=== PATIENT | female | born 1965 | race Caucasian/White ===

== ENCOUNTER 2021-10-18 16:52 | Outpatient (CLI) | payer BC, SELFPAY ==
--- NOTE | ~2021-10-18 | XR_ITS ---
EXAMINATION: XR knee RT 3V DATE: 10/18/2021 17:17 INDICATION: Right knee pain. TECHNIQUE: 3 views of right knee were obtained. COMPARISON: Right knee radiographs 10/24/2016 FINDINGS: Bone alignment is normal. No fracture. There is mild tricompartmental osteoarthritis charac terized by tiny osteophytes. No joint space narrowing. No knee joint effusion. IMPRESSION: 1. Mild right knee osteoarthritis. Reviewed, dictated and finalized at location A.
== END 2021-10-18 16:53 | disposition home or self-care (01) ==
LOC: ANHIMG 17:00
PROVIDERS: PCP Family Medicine
DX: M17.11 Unilateral primary osteoarthritis, right knee (principal)
CPT/HCPCS: 73562

== ENCOUNTER 2022-08-30 16:41 | Outpatient (CLI) | payer BC, SELFPAY ==
--- NOTE | ~2022-08-30 | XR_ITS ---
XR cervical spine 4-5V 08/30/2022 17:09 Indication: Connective tissue disorder Procedure: 4 views cervical spine Comparison: No prior studies for comparison. Findings: Vertebral body heights are maintained. There is disc narrowing at C3-4 through C7-T1. No pr evertebral soft tissue abnormality. No acute fracture or traumatic malalignment. There is mild multil evel uncinate hypertrophy. Lung apices are unremarkable. Impression: 1: Mild cervical spondylosis. Reviewed, dictated and finalized at location A. Impression: 1: Mild cervical spondylosis.
--- NOTE | ~2022-08-30 | XR_ITS ---
XR lumbar spine 2-3V 08/30/2022 17:09 Indication: Low back pain Procedure: 3 views lumbar spine Comparison: No prior studies for comparison. Findings: Vertebral body heights are maintained. Normal lumbar lordosis. There is mild disc narrowing at L4-5 and L5-S1. There is facet hypertrophy at these levels. No evidence for acute fracture or spo ndylolisthesis. Mild dextrocurvature of the lumbar spine. Pedicles intact. Sacral foramen are symmetr ic. There are cholecystectomy clips. Impression: 1: Mild lumbar spondylosis. Reviewed, dictated and finalized at location A. Impression: 1: Mild lumbar spondylosis.
== END 2022-08-30 16:42 | disposition home or self-care (01) ==
LOC: ANHIMG 16:49
PROVIDERS: PCP Family Medicine
DX: M15.0 Primary generalized (osteo)arthritis (principal); M35.9 Systemic involvement of connective tissue, unspecified; M47.896 Other spondylosis, lumbar region; M47.892 Other spondylosis, cervical region
CPT/HCPCS: 72050; 72100

== ENCOUNTER 2022-10-22 09:08 | Outpatient (CLI) | payer BC, SELFPAY ==
--- NOTE | 2022-10-22 11:00 | NEURO_ITS ---
Impression: Patient reports a history of lower extremity numbness. # Reduce CMAP amplitudes noted in all three points of stimulation in right peroneal motor nerve. # Chronic neurogenic changes noted in right extensor digitorum brevis. # These findings could be seen in the setting of axonal neuropathy involving the right peroneal nerve. # Clinical correlation recommended. Nerve Conduction Studies Anti Sensory Summary Table Stim Site NR Peak (ms) P-T Amp (?V) Site1 Site2 Delta-P (ms) Dist (cm) Nilo (m/s) Left Sup Fibular Anti Sensory (Ant Lat Mall) 14 cm 3.5 8.6 14 cm Ant Lat Mall 3.5 16.0 46 Right Sup Fibular Anti Sensory (Ant Lat Mall) 14 cm 3.3 4.9 14 cm Ant Lat Mall 3.3 16.0 48 Left Sural Anti Sensory (Lat Mall) Calf 3.4 12.9 Calf Lat Mall 3.4 16.0 47 Right Sural Anti Sensory (Lat Mall) Calf 3.3 12.8 Calf Lat Mall 3.3 16.0 48 Motor Summary Table Stim Site NR Onset (ms) O-P Amp (mV) Site1 Site2 Delta-0 (ms) Dist (cm) Nilo (m/s) Left Peroneal Motor (Vastus Med) Ankle 4.7 2.6 Popit Ankle 10.1 44.0 44 Popit 14.8 1.9 B Fib Ankle 8.0 34.0 43 B Fib 12.7 2.0 Right Peroneal Motor (Vastus Med) Ankle 5.0 0.7 Popit Ankle 9.2 44.0 48 Popit 14.2 0.9 B Fib Ankle 8.1 34.0 42 B Fib 13.1 0.4 Left Tibial Motor (Abd Farrell Brev) Ankle 4.6 5.4 Knee Ankle 9.9 43.0 43 Knee 14.5 4.1 Right Tibial Motor (Abd Farrell Brev) Ankle 4.7 6.2 Knee Ankle 9.5 42.0 44 Knee 14.2 5.1 F Wave Studies NR F-Lat (ms) L-R F-Lat (ms) Left Peroneal (Mrkrs) (EDB) 56.60 0.83 Right Peroneal (Mrkrs) (EDB) 57.43 0.83 Left Tibial (Mrkrs) (Abd Hallucis) 57.17 0.21 Right Tibial (Mrkrs) (Abd Hallucis) 56.96 0.21 EMG Side Muscle Nerve Root Ins Act Fibs Amp Dur Recrt Comment Right AntTibialis Dp Br Fibular L4-5 Nml Nml Nml Nml Nml Right Gastroc Tibial S1-2 Nml Nml Nml Nml Nml Right Fibularis Long Sup Br Fibular L5-S1 Nml Nml Nml Nml Nml Right Flex Dig Long Tibial L5-S2 Nml Nml Nml Nml Nml Right Ext Dig Brev Dp Br Fibular L5, S1 Nml Nml Incr Nml Reduced Left AntTibialis Dp Br Fibular L4-5 Nml Nml Nml Nml Nml Left Gastroc Tibial S1-2 Nml Nml Nml Nml Nml Left Fibularis Long Sup Br Fibular L5-S1 Nml Nml Nml Nml Nml Left Flex Dig Long Tibial L5-S2 Nml Nml Nml Nml Nml Left Ext Dig Brev Dp Br Fibular L5, S1 Nml Nml Nml Nml Nml MTDD
== END 2022-10-22 09:09 | disposition home or self-care (01) ==
PROVIDERS: PCP Family Medicine; Visit Provider Physician Assistant
DX: R20.0 Anesthesia of skin (principal); R94.131 Abnormal electromyogram [EMG]
CPT/HCPCS: 95886; 95910

== ENCOUNTER 2023-01-17 07:55 | Outpatient (CLI) | payer BC, SELFPAY ==
--- NOTE | ~2023-01-17 | US_ITS ---
Limited Abdominal Sonogram: Real-time sonographic imaging of the right upper quadrant was performed. Clinical History: Connective tissue disorder Findings: The liver appears mildly echogenic/heterogeneous, with no evidence of bile duct dilatation . Questionable 1.6 cm hypoechoic area in the left hepatic lobe. Main portal vein demonstrates normal direction of flow. The gallbladder is well absent, compatible prior cholecystectomy. The common bile duct measures 2 mm. The visualized pancreas, aorta, and IVC are unremarkable. Impression: Suspected fatty infiltration of the liver other chronic liver disease. Questionable 1.6 cm hypoechoic area in the left hepatic lobe. This could reflect area of relative fatty sparing versus potentially a small mass. Consider follow-up hepatic MR as indicated to further evaluate. Reviewed, dictated and finalized at location M. Impression: Suspected fatty infiltration of the liver other chronic liver disease. Question able 1.6 cm hypoechoic area in the left hepatic lobe. This could reflect area o f relative fatty sparing versus potentially a small mass. Consider follow-up he patic MR as indicated to further evaluate.
== END 2023-01-17 07:56 | disposition home or self-care (01) ==
LOC: ANHIMG 07:58
PROVIDERS: PCP Family Medicine; Visit Provider Internal Medicine
DX: M35.9 Systemic involvement of connective tissue, unspecified (principal); R79.89 Other specified abnormal findings of blood chemistry; K76.9 Liver disease, unspecified
CPT/HCPCS: 76705

== ENCOUNTER 2023-02-01 07:12 | Outpatient (CLI) | payer BC, SELFPAY ==
--- NOTE | ~2023-02-01 | MR_ITS ---
EXAMINATION: MR abdomen wo/w con INDICATION: Hepatomegaly not elsewhere classified, liver mass on ultrasound TECHNIQUE: Coronal SSFSE ARC, WATER:coronal LAVA-FLEX, Coronal 2D FIESTA FatSat, Axial SSFSE BH ARC, Axial 3D DualEcho BH, Axial SSFSE-IR, Axial DWI b=500, Axial 2D FIESTA FatSat, pre and dynamic postco ntrast Axial LAVA ARC, postcontrast Coronal In and Opposed phase LAVA FLEX COMPARISON: Ultrasound, 01/17/2023 CONTRAST: Multihance, 15 cc FINDINGS: The liver is unremarkable. No suspicious liver mass is identified. There is no MR evidence of hepatic steatosis. The spleen, pancreas, and adrenal glands are normal. The gallbladder is surgica lly absent. The right kidney is unremarkable. There is an 8 mm cyst of the left kidney. There are no pathologically enlarged abdominal lymph nodes. No dilated loops of bowel are evident. IMPRESSION: 1. No suspicious liver mass identified. Reviewed, dictated and finalized at location F.
== END 2023-02-01 07:13 | disposition home or self-care (01) ==
PROVIDERS: PCP Family Medicine; Visit Provider Physician Assistant
DX: R16.0 Hepatomegaly, not elsewhere classified (principal)
CPT/HCPCS: 74183; A9577

== ENCOUNTER 2023-11-14 16:53 | Outpatient (CLI) | payer BC, SELFPAY ==
--- NOTE | ~2023-11-14 | XR_ITS ---
EXAM: XR hand LT min 3V, XR hand RT min 3V DATE: 11/14/2023 17:22 HISTORY: Connective tissue disorder. COMPARISON: 10/24/2016. FINDINGS: Soft tissue anchor in the distal right ulna Normal mineralization. No fracture or dislocati on. No lytic or blastic lesion. Very mild degenerative change noted in the DIP joints and PIP joints of the bilateral fingers, the bilateral first MCP joints, and the left first CMC joint. No erosion or periosteal change. Soft tissues within normal limits. IMPRESSION: Mild particular osteoarthritis of the hands. Reviewed, dictated and finalized at location K. IMPRESSION: Mild particular osteoarthritis of the hands.
--- NOTE | ~2023-11-14 | XR_ITS ---
EXAM: XR_KNEE1-2VRT_CR, XR_KNEE1-2VLT_CR DATE: 11/14/2023 17:22 HISTORY: CONNECTIVE TISSUE . COMPARISON: Right knee 10/18/2021; left knee 10/24/2016. FINDINGS: Normal mineralization. Mild bilateral medial joint space narrowing. Mild bilateral tricomp artmental osteophytosis. No fracture or dislocation. No lytic or blastic lesions. No erosion or perio steal change. Bilateral leg varicosities. IMPRESSION: Mild bilateral tricompartmental knee osteoarthritis. Reviewed, dictated and finalized at location K. IMPRESSION: Mild bilateral tricompartmental knee osteoarthritis.
== END 2023-11-14 16:54 | disposition home or self-care (01) ==
LOC: ANHIMG 16:53
PROVIDERS: PCP Family Medicine; Visit Provider Internal Medicine
DX: M19.042 Primary osteoarthritis, left hand (principal); M19.041 Primary osteoarthritis, right hand; M17.0 Bilateral primary osteoarthritis of knee
CPT/HCPCS: 73130; 73560

== ENCOUNTER 2023-12-24 17:44 | Emergency (ER) | payer BC, SELFPAY ==
[2023-12-24 17:53] VITALS: BP 115/72; PULSE 78; RESP 16; TEMP 37.6; O2SAT 97
--- NOTE | 2023-12-24 18:11 | ED.SKABFB ---
HPI - Skin/Abscess/Foreign Bdy General Chief complaint: Skin/Abscess/Foreign Body Stated complaint: rash Time Seen by Provider: 12/24/23 18:05 Source: patient and RN notes reviewed Mode of arrival: ambulatory Limitations: no limitations History of Present Illness HPI narrative: Patient presents today complaining of a 3 day history of a small area of rash to the left lateral flank with itching and burning. She has been using Benadryl and cortisone with little relief. Believe she may have shingles. She did have the updated shingles vaccine in May and July. History of lupus and takes Plaquenil. Related Data Home Medications Medication Instructions Recorded Confirmed multivitamin 1 tablet PO DAILY 06/07/19 12/24/23 nabumetone 750 mg tablet 750 mg PO BID 06/07/19 12/24/23 turmeric root extract 500 mg 500 mg PO DAILY 06/07/19 12/24/23 capsule hydroxychloroquine 200 mg tablet 300 mg PO DAILY 01/11/22 12/24/23 pregabalin 100 mg capsule (Lyrica) 100 mg PO TID 04/29/23 12/24/23 Allergies Allergy/AdvReac Type Severity Reaction Status Date / Time No Known Allergies Allergy Verified 12/24/23 17:57 Review of Systems Review of Systems: CONSTITUTIONAL: Denies body aches, fever, chills, or sweats. EYES: Denies visual changes, redness, or discharge. ENT: Denies rhinorrhea, congestion, sore throat, or otalgia. CARDIOVASCULAR: Denies chest pain, palpitations, or edema. RESPIRATORY: Denies cough or dyspnea. GASTROINTESTINAL: Denies abdominal pain, nausea, vomiting, or diarrhea. GENITOURINARY: Denies dysuria or hematuria. SKIN: + rash to left flank MUSCULOSKELETAL: Denies back pain, joint pain, or myalgia. NEUROLOGIC: Denies headache, numbness, tingling, or weakness. PSYCH: Denies depression or anxiety. [facility] Past Medical History Medical History Bilateral breast cysts DJD (degenerative joint disease) Dyslipidemia Fractured fibula Hyperlipidemia Migraines Neuropathy (~10/2022) Ovarian cyst (~2014) Pyelonephritis (~2003) SLE (systemic lupus erythematosus) Surgical History Surgical History History of breast biopsy (06/12/07) left breast cyst excision--benign right breast bx--benign History of cholecystectomy (~2012) History of colonoscopy (06/23/15) History of decompression of ulnar nerve (~2010) History of exploratory laparotomy (11/17/03) pelvic abscess History of gynecologic surgery (~2000) uterine balloon therapy History of hysterectomy (11/10/03) uterine prolapse, dysmenorrhea History of repair of dehiscence of vaginal cuff (04/26/04) postcoital bleeding History of tubal ligation (~1997) Family History Family History Mother Family history of thyroid disease Family history of arthritis Osteopenia Father Family history of cardiovascular disease Hypertension Parkinsons disease, secondary Other Breast cancer maternal aunt Son Multiple sclerosis Sibling DVT of lower extremity, bilateral Carcinoma of colon Sibling Carcinoma of colon Hypertension Social History Social History Smoking status: Never smoker Second hand tobacco smoke exposure: No Alcohol intake: former Alcohol use details: On occasion. Substance use: never Substance use type: does not use Lack of Transportation: No Lack of Food: Never True Current Housing: I Have Housing Concerned About Future Housing: No Difficulty Paying Gas/Electric Bills: No Difficulty Paying for Meds: No Currently Unemployed: No Education: High School Diploma/GED Difficulty w/ Childcare or Family Care: No Living arrangements: other Additional living arrangements comments: Occupation/Education: occupation Additional occupation/education comm
== END 2023-12-24 18:20 | disposition home or self-care (01) ==
PROVIDERS: Emergency Provider Nurse Practitioner; PCP Family Medicine
DX: B02.9 Zoster without complications (principal); E78.5 Hyperlipidemia, unspecified; G62.9 Polyneuropathy, unspecified; M32.9 Systemic lupus erythematosus, unspecified
CPT/HCPCS: 99213; G0463

== ENCOUNTER 2024-05-11 11:10 | Outpatient (CLI) | payer BC, SELFPAY ==
--- NOTE | ~2024-05-11 | CT_ITS ---
EXAMINATION: CT abdomen pelvis w con DATE: 05/11/2024 11:32 INDICATION: Right upper quadrant abdominal pain. TECHNIQUE: Computed tomography (CT) of the abdomen and pelvis was performed with 100 mL Omnipaque 350 intravenous contrast. Automated exposure control and iterative reconstruction technique were employe d. The dose-length product was 615.57 mGy-cm. COMPARISON: CT abdomen and pelvis 05/05/2018 FINDINGS: The visualized portions of the lung bases demonstrate mild atelectasis. No pleural effusion . The heart size is normal. No pericardial effusion. The liver is normal. There are changes of cholec ystectomy. The spleen, pancreas, adrenal glands, and right kidney are normal. There is a 7 mm cyst in left kidney. There is diverticulosis of the colon without evidence of diverticulitis. There are no d ilated loops of bowel. The appendix is not visualized. There are no pathologically enlarged lymph nod es. There is no free intraperitoneal fluid. There is severe lower lumbar spondylosis. IMPRESSION: 1. No etiology for the patient's symptoms. Reviewed, dictated and finalized at location A. 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
== END 2024-05-11 11:11 | disposition home or self-care (01) ==
PROVIDERS: PCP Family Medicine; Visit Provider Student in an Organized Health Care Education/Training Program
DX: R10.11 Right upper quadrant pain (principal); R19.8 Other specified symptoms and signs involving the digestive system and abdomen; R11.0 Nausea; Z87.19 Personal history of other diseases of the digestive system
CPT/HCPCS: 74177; Q9967

== ENCOUNTER 2024-06-18 16:23 | Emergency (ER) | payer BC, SELFPAY ==
[2024-06-18 16:38] VITALS: BP 142/81; PULSE 85; RESP 16; TEMP 36.3; O2SAT 99
[2024-06-18 16:43] LABS: EDUAAPPEAR Clear; EDUABILI Negative (Negative); EDUABLOOD Negative (Negative); EDUACOLOR1 Orange; EDUAGLUCOSE Negative (Negative); EDUAKETONE Negative (Negative); EDUALEUKO 2+ (Negative); EDUANITRATE Positive (Negative); EDUAPH 6.5; EDUAPROTEIN Negative (Negative); EDUAUROBILI 0.2
--- NOTE | 2024-06-18 17:33 | ED.FEMALEGU ---
HPI - Female Genitourinary General Chief complaint: Urogenital-Female Stated complaint: UTI symptoms Time Seen by Provider: 06/18/24 17:33 Source: patient, RN notes reviewed and old records reviewed Mode of arrival: ambulatory Limitations: no limitations History of Present Illness HPI Narrative: Patient presents with 3 day history of low back pain and dysuria along with urinary frequency. She denies any nausea or vomiting. She denies age fever, chills, sweats. She denies any abdominal pain. She denies marcos hematuria. She has been taking azo for her symptoms with moderate relief. She voices no other concerns or complaints at this time. Related Data Home Medications ?Medication ?Instructions ?Recorded ?Confirmed ?Last Taken ?Type multivitamin 1 tablet PO DAILY 06/07/19 05/07/24 Unknown History turmeric root extract 500 mg 500 mg PO DAILY 06/07/19 05/07/24 Unknown History capsule azathioprine 50 mg tablet 50 mg PO DAILY 01/20/24 05/07/24 Unknown History pregabalin 100 mg capsule (Lyrica) 150 mg PO TID 05/07/24 05/07/24 Unknown History Allergies Allergy/AdvReac Type Severity Reaction Status Date / Time No Known Allergies Allergy Verified 06/18/24 16:59 Review of Systems Review of Systems: All systems reviewed & are unremarkable except as noted in HPI and below Constitutional: Constitutional: Reports no additional constitutional complaints ENT: Reports system reviewed and no additional complaints, except as documented Cardiovascular: Cardiovascular: Reports no additional cardiovascular complaints Respiratory: Respiratory: Reports no additional respiratory complaints Gastrointestinal: Gastrointestinal: Reports no additional gastrointestinal complaints Genitourinary: Genitourinary: Reports no additional female genitourinary complaints, Reports as per HPI, Reports nocturia, Reports dysuria and Reports urinary urgency Musculoskeletal: Musculoskeletal: Reports back pain PMFSH Past Medical History Medical History Bilateral breast cysts DJD (degenerative joint disease) Dyslipidemia Fractured fibula Hyperlipidemia Migraines Neuropathy (~10/2022) Ovarian cyst (~2014) Pyelonephritis (~2003) SLE (systemic lupus erythematosus) Surgical History Surgical History History of breast biopsy (06/12/07) left breast cyst excision--benign right breast bx--benign History of cholecystectomy (~2012) History of colonoscopy (06/23/15) History of decompression of ulnar nerve (~2010) History of exploratory laparotomy (11/17/03) pelvic abscess History of gynecologic surgery (~2000) uterine balloon therapy History of hysterectomy (11/10/03) uterine prolapse, dysmenorrhea History of repair of dehiscence of vaginal cuff (04/26/04) postcoital bleeding History of tubal ligation (~1997) Family History Family History Mother Family history of thyroid disease Family history of arthritis Osteopenia Father Family history of cardiovascular disease Hypertension Parkinsons disease, secondary Other Breast cancer maternal aunt Son Multiple sclerosis Sibling DVT of lower extremity, bilateral Carcinoma of colon Sibling Carcinoma of colon Hypertension Social History Social History Smoking status: Never smoker Second hand tobacco smoke exposure: No Alcohol intake: former Alcohol use details: On occasion. 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 There is no relevant family history pertinent to the patient complaint. Exam Const: General: cooperative, no acute distress, alert and awake Orientation/consciousness: oriented to person, oriented to place and oriented to time HENMT: Head: normal to inspection Resp: Effort & Inspection: normal respiratory effort and able to speak in complete sentences Auscultation: clear to auscultation bilaterally, no crackles, no rales, no rhonchi and no wheezes Cardio: Palpation: normal PMI Rate: regular rate Rhythm: regular rhythm Heart sounds: S1 normal heart sound present and S2 normal heart sound present : General: Yes bladder normal to palpation and Yes no CVA tenderness Neuro: General: oriented to person, oriented to place and oriented to time Cranial nerves: Yes CN's II-XII intact bilaterally Psych: Appearance: grossly normal Thought process: Normal thought process present Insight: Good insight present (Psych) Judgement: Good judgement present (Psych) Course Course Level of Care: Express Care Visit Vital Signs Vital signs: Vital Signs Temperature 97.3 F L 06/18/24 16:38 Pulse Rate 85 06/18/24 16:38 Respiratory Rate 16 06/18/24 16:38 Blood Pressure 142/81 H 06/18/24 16:38 Pulse Oximetry 99 06/18/24 16:38 Oxygen Delivery Room Air 06/18/24 16:38 Temperature 97.3 F L 06/18/24 16:38 Pulse Rate 85 06/18/24 16:38 Respiratory Rate 16 06/18/24 16:38 Blood Pressure 142/81 H 06/18/24 16:38 Pulse Oximetry 99 06/18/24 16:38 Oxygen Delivery Room Air 06/18/24 16:38 Reviewed MDM - Female Genitourinary MDM Narrative Medical decision making narrative: UA consistent with UTI. Culture sent. Start Macrobid. Patient nontoxic appearing, stable for discharge home on p.o. antibiotic therapy. Discharge instructions reviewed with patient, as well as provided in writing per nursing staff. The instructions also include specific and strict return/GO TO THE ER as well as f/u information. All questions have been answered, and the patient deny any further questions with discharge and discharge plan. Some parts of this dictation were generated by voice recognition software and may contain typographical and/or grammatical inaccuracies. Differential Diagnosis Differential diagnosis: Likely urinary tract infection and cystitis Medical Records Attestation: I reviewed the patient's medical records. Lab Data Attestation: I reviewed the patient's lab results. Labs: Lab Results 06/18/24 Range/Units 16:39 POC Urine Color Jbphh POC Urine Clarity Clear POC Urine pH 6.5 POC Ur Specif [place] 1.010 POC Urine Protein Negative (Negative) POC Ur Glucose (UA) Negative (Negative) POC Urine Ketones Negative (Negative) POC Urine Blood Negative (Negative) POC Urine Nitrite Positive (Negative) POC Urine Bilirubin Negative (Negative) POC Urine Urobilinogen 0.2 POC U Leukocyte Esteras 2+ (Negative) Discharge Plan Discharge Clinical Impression: Urinary tract infection Qualifiers: Urinary tract infection type: site unspecified Hematuria presence: without hematuria Qualified Code(s): N39.0 - Urinary tract infection, site not specified Patient Disposition: Home, Self-Care Condition: Stable Instructions: Antibiotic Form, Urinary Tract Infection in Women (ED) Additional Instructions: Take medications as prescribed. Follow with primary care provider. Emergency department for any new or worsening symptoms. Patient Language: [place] Prescriptions: New nitrofurantoin monohyd/m-cryst [Macrobid] 100 mg capsule 100 mg PO Q12H 5 Days Qty: 10 0RF Rx Instructions: must administer with a meal/food No Action azathioprine 50 mg tablet 50 mg PO DAILY amitriptyline 25 mg tablet 25 mg PO QHS Qty: 1 0RF duloxetine 30 mg capsule, delayed rel sprinkle 30 mg PO DAILY Qty: 1 0RF pregabalin [Lyrica] 100 mg capsule 150 mg PO TID multivitamin Tablet 1 tablet PO DAILY turmeric root extract 500 mg capsule 500 mg PO DAILY sumatriptan succinate 100 mg tablet 100 mg PO ONCE Qty: 14 3RF Rx Instructions: TAKE NEEDED PER DIRECTIONS. topiramate 25 mg tablet See Rx Instructions .ROUTE .COMPLEX Qty: 60 4RF Dose Instruction: TAKE 1 TABLET BY MOUTH TWICE DAILY Rx Instructions: TAKE 1 TABLET BY MOUTH TWICE DAILY atorvastatin 20 mg tablet 20 mg PO DAILY Qty: 30 3RF levothyroxine 13 mcg capsule 13 mcg PO DAILY Qty: 90 1RF Follow-up/Referrals: Manuela Gray MD [Primary Care Provider] - 2 Weeks Time of Disposition: 17:39
== END 2024-06-18 17:45 | disposition home or self-care (01) ==
PROVIDERS: Emergency Provider Nurse Practitioner Family; PCP Family Medicine
DX: N39.0 Urinary tract infection, site not specified (principal); E78.5 Hyperlipidemia, unspecified; G62.9 Polyneuropathy, unspecified; M32.9 Systemic lupus erythematosus, unspecified
CPT/HCPCS: 81003; 87086; 99213; G0463

== ENCOUNTER 2025-01-16 18:02 | Emergency (ER) | payer BC, SELFPAY ==
--- NOTE | ~2025-01-16 | CT_ITS ---
EXAMINATION: CT abdomen pelvis wo con DATE: 01/16/2025 19:09 INDICATION: RIGHT FLANK PAIN. LOWER BACK PAIN. TECHNIQUE: Computed tomography (CT) of the abdomen and pelvis was performed without intravenous contr ast. Automated exposure control and iterative reconstruction technique were employed. The dose-length product was 508.13 mGy-cm. COMPARISON: 05/11/2024. FINDINGS: Lower thorax: Peripheral nodule in the right costophrenic phrenic sulcus, decreased in size, likely b enign. 4 mm nodule in the left lateral costophrenic sulcus, stable, also likely benign. Liver: Normal. Biliary/Gallbladder: Gallbladder is absent. No bile duct dilation. Pancreas: No mass or duct dilation. Spleen: Normal. Adrenals:No mass. Kidneys: No suspicious mass, obstructing stone, or hydronephrosis. GI tract: No small or large bowel dilation. Appendix not visualized Diverticulosis without diverticul itis. Mesentery/Peritoneum: No ascites, mass, or free air. Retroperitoneum: No mass. Atherosclerotic calcifications of intra-abdominal arterial vessels. Pelvis: Mostly empty urinary bladder with mild inflammatory change. Absent uterus. Normal ovaries. Co arse calcification associated with the right ovary, stable. Soft Tissues: Small uncomplicated fat-containing umbilical hernia. Bones: No acute osseous finding. IMPRESSION: Mild urinary bladder wall inflammatory change, as can be seen with cystitis. Reviewed, dictated and finalized at location K.
[2025-01-16 18:04] VITALS: BP 137/88; PULSE 99; RESP 16; TEMP 37.3; O2SAT 93
--- OUTSIDE RECORDS SUMMARY | 2025-01-16 18:05 | XMS_ITS | Encounter Summary ---
Author Organization [facility] Address [address] [place] [address] Care Team Providers Care Hazardous Waste Management Specialist Name Role Phone Manuela Gray MD Primary Care Provider [phone] Encounter Details Date Type Department Care Team (Late st Contact Info) Description 12/12/2001 Outpatient [facility] [employer] [facility] [address] [place] [phone] [place] [address] [place] [address] [place] [address] Social History Tobacco Use Types Packs/Day Years Used Date Smoking Tobacco: Never Assessed Comments Unknown Sex and Gender Information Value Date Recorded Sex Assigned at Not on file Legal Sex Female 2:54 AM PHYSIATRIST Gender Identity Not on file Sexual Orientation Not on file documented as of this encounter Plan of Treatment Not on file documented as of this encounter Visit Diagnoses Not on filedocumented in this encounter Care Teams Hazardous Waste Management Specialist Relationship Specialty Start Date End Date Manuela Gray MD [address] [place] [phone] PCP - General Family Practice 09/03/22 documented as of this encounter
--- OUTSIDE RECORDS SUMMARY | 2025-01-16 18:05 | XMS_ITS ---
Author Organization [facility] Address [address] [place], [place] [phone] Care Team Providers Care Concrete Mixing Plant Laborer Name Role Phone NIKO NUNEZ MD Primary Care Provider UnavailYari Davison Unavailable [phone] REASON FOR VISIT Reschedule Appointment Request Encounters Encounter Location Date Provider Diagnosis [facility] [address], [address] [place], [place] [phone] 11/15/2024 Yari Cheng PLAN OF TREATMENT Next Appt Details Provider Name:Yari robles, 02/21/2025 08:00:00 AM, [address] [facility] [address], [address], [place], [place], [phone],
--- OUTSIDE RECORDS SUMMARY | 2025-01-16 18:05 | XMS_ITS | Encounter Summary ---
Author Organization [email or web address] Address 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
--- OUTSIDE RECORDS SUMMARY | 2025-01-16 18:05 | XMS_ITS | Encounter Summary ---
Author Organization [facility] Address 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
--- OUTSIDE RECORDS SUMMARY | 2025-01-16 18:05 | XMS_ITS ---
Author Organization [facility] Address [address] [place], [place] [address] Care Team Providers Care Tennis Camp Instructor Name Role Phone NIKO NUNEZ MD Primary Care Provider UnavailYari Davison Unavailable [phone] Amee Burden Unavailable [phone] REASON FOR VISIT 3 mo f/u Encounters Encounter Location Date Provider Diagnosis [facility] [address], [address] [place], [place] [id number] 11/24/2024 Amee Burden PLAN OF TREATMENT Next Appt Details Provider Name:Yari robles, 02/21/2025 08:00:00 AM, [address], [address], [place], [place], [phone],
--- OUTSIDE RECORDS SUMMARY | 2025-01-16 18:05 | XMS_ITS | Referral Summary ---
Author Organization [facility] Address [address] [place] [address] Care Team Providers Care Premium Note Interest Calculator Clerk Name Role Phone Manuela Gray MD Primary Care Provider [phone] Allergies Active Allergy Reactions Criticality Noted Date Comments Cefazolin Unknown Reaction: Unknown, Meperidine Hives High Reaction: Hives, Midazolam Hives High Reaction: Hives, Medications azaTHIOprine (IMURAN) 50 mg tablet azathioprine 50 mg tablet Active hydroxychloroq uine (PLAQUENIL) 200 mg tablet 06/17/19 20 Active multivitamin tablet daily Active SUMAtriptan (IMITREX) 100 mg tablet TK 1 T PO AOS OF MIGRAINE. MAY REPEAT AFTER 2 H IF VILLAFANA RETURNS. NTE 200 MG IN 24 H 06/17/19 20 Active topiramate (TOPAMAX) 25 mg tablet topiramate 25 mg tablet TK 1 T PO BID Active CeleBREX 100 mg capsule every 12 hours 11/12/19 24 Active amitriptyline (ELAVIL) 25 mg tablet Take 1 tablet (25 mg total) by mouth nightly 30 tablet 11 02/12/[address] (CYMBALTA) 30 mg capsule Take 1 capsule (30 mg total) by mouth daily 06/10/20 24 Active levothyroxine sodium (TIROSINT) 13 mcg capsule Take 1 capsule (13 mcg total) by mouth daily 08/06/19 25 Active nitrofurantoin monohydrate (MACROBID) 100 mg capsule Take 1 capsule (100 mg total) by mouth Active atorvastatin (LIPITOR) 20 mg tablet Take 1 tablet (20 mg total) by mouth daily 08/11/19 25 Active pregabalin (LYRICA) 150 mg capsule TAKE 1 CAPSULE(150 MG) BY MOUTH THREE TIMES DAILY 90 capsule 3 12/31/19 25 Active pregabalin (LYRICA) 150 mg capsule TAKE 1 CAPSULE(150 MG) BY MOUTH THREE TIMES DAILY 90 capsule 2 08/27/19 25 025 Discontinued Active Problems Problem Noted Date Diagnosed Date Small fiber neuropathy 12/27/2022 Abnormal findings on diagnostic imaging of breas t 07/12/2019 Abnormal liver function tests 01/02/2015 Systemic lupus erythematosus 01/02/2015 Diarrhea 01/02/2015 Right upper quadrant abdominal pain 01/02/2015 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 Arthralgia of wrist 11/27/2011 Social History Tobacco Use Types Packs/Day Years Used Date Smoking Tobacco: Never Tobacco Cessation:Counseling Given: Not Answered Comments No Sex and Gender Information Value Date Recorded Sex Assigned at Not on file Legal Sex Female 9:07 PM ADMITTING COORDINATOR Gender Identity Not on file Sexual Orientation Not on file Last Filed Vital Signs Vital Sign Reading Time Taken Comments Blood Pressure 139/90 08/17/2024 2:08 PM ADMITTING COORDINATOR Pulse 84 08/17/2024 2:08 PM ADMITTING COORDINATOR Temperature 36 C (96.8 F) 08/17/2024 2:08 PM ADMITTING COORDINATOR Respiratory Rate - - Oxygen Saturation 99% 08/17/2024 2:08 PM ADMITTING COORDINATOR Inhaled Oxygen Concentration - - Weight 84.7 kg (186 lb 11.2 oz) 08/17/2024 2:08 PM ADMITTING COORDINATOR Height 167.6 cm (5' 6) 08/17/2024 2:08 PM ADMITTING COORDINATOR Body Mass Index 30.13 08/17/2024 2:08 PM ADMITTING COORDINATOR Plan of Treatment Not on file Procedures Procedure Name Priority Date/Time Associated Diagnosis Comments SCREENING MAMMOGRAM BILATERAL W CONG Schedule Routine, Read Routine (OP Routine) 04/20/2024 2:58 PM ADMITTING COORDINATOR Screening mammogram, encounter for from Last 3 Months or Most Recently Relevant to Health Maintenance Results * Screening Mammogram Bilateral W Cong (04/20/2024 2:58 PM ADMITTING COORDINATOR) Anatomical Region Laterality Modality Breast Bilateral Mammography Narrative 04/20/2024 3:26 PM ADMITTING COORDINATOR Mammogram Technique: Bilateral Digital Breast Tomosynthesis, Bilateral C-view 2D Screening mammogram. Views obtained: bilateral craniocaudal and bilateral mediolateral oblique. Computer Aided Detection was performed. Mammogram Findings: The present examination has been compared to prior imaging studies performed at [facility] on 11/14/2020, 12/19/2021 and 04/03/2023. There are scattered areas of fibroglandular density. There is no suspicious abnormality in either breast. Impression: There is no mammographic evidence of malignancy. Annual screening mammography is recommended. OVERALL FINAL ASSESSMENT: BI-RADS CATEGORY 1: Negative. Procedure Note Negrita Winslow MD - 04/20/2024 Mammogram Technique: Bilateral Digital Breast Tomosynthesis, Bilateral C-view 2D Screening mammogram. Views obtained: bilateral craniocaudal and bilateral mediolateral oblique. Computer Aided Detection was performed. Mammogram Findings: The present examination has been compared to prior imaging studies performed at [facility] on 11/14/2020, 12/19/2021 and 04/03/2023. There are scattered areas of fibroglandular density. There is no suspicious abnormality in either breast. Impression: There is no mammographic evidence of malignancy. Annual screening mammography is recommended. OVERALL FINAL ASSESSMENT: BI-RADS CATEGORY 1: Negative. us Self Screening Mammogram IMG MAMMO PROCEDURES Fi nal Result from Last 3 Months or Most Recently Relevant to Health Maintenance Insurance [facility] ACCESS CHOICE ANTHEM ACCESS CHOICE ANTHEM ACCESS CHOICE Care Teams Premium Note Interest Calculator Clerk Relationship Specialty Start Date End Date Manuela Gray MD PCP - General Family Medicine 02/21/23
--- OUTSIDE RECORDS SUMMARY | 2025-01-16 18:05 | XMS_ITS | Clinical Summary ---
Author Organization [facility] Address [address] [place] [address] Care Team Providers Care Outpatient Services Director Name Role Phone Neftaly Oden MD Primary Care Provider [phone] Source Comments [facility],non-owned Affiliates and Associated Physician Practices is amultiple site organization consisting of ambulatory clinics and hospital sitesin [place], [place], [place] and [place]. This disclosure is being madepursuant to the Care Everywhere program and may not contain all information available regarding this patient. Last updated 18.[facility] Allergies No known active allergies Medications * Be aware that medications may not be up to date on this document. Alwaysverify current medications with the patient. NABUMETONE PO Take by mouth 2 times daily Active hydroxychloroqu ine (PLAQUENIL) 200 MG tablet Take by mouth 2 times daily Active azaTHIOprine (IMURAN) 50 MG tablet Take 50 mg by mouth once daily Active pantoprazole EC (PROTONIX) 40 MG tablet Take 40 mg by mouth once daily Reported on 07/03/2016 Active NORTRIPTYLINE HCL PO Take by mouth once daily Active multivitamin daily (THERAGRAN) tablet Take 1 Tab by mouth daily with food Active Calcium Carb-Cholecalci ferol (CALCIUM 600 + D PO) Take by mouth once daily Active Probiotic Product (PROBIOTIC DAILY PO) Take by mouth once daily Active VITAMIN E PO Take by mouth once daily Active Chunky-3 Fatty Acids (SB OMEGA-3 FISH OIL PO) Take by mouth once daily Active nitrofurantoin monohyd macro crystals (MACROBID) 100 MG capsule Take 1 Cap by mouth 2 times daily with morning and evening meal 14 Cap 10/30/2016 Active Active Problems Problem Noted Date Diagnosed Date SLE (systemic lupus erythematosus) 10/30/2016 Social History Tobacco Use Types Packs/Day Years Used Date Smoking Tobacco: Never Smokeless Tobacco: Never Alcohol Use Standard Drinks/Week Comments Yes 0 (1 standard drink = 0.6 oz pur e alcohol) Comments No Sex and Gender Information Value Date Recorded Sex Assigned at Not on file Legal Sex Female 6:29 AM CDT Gender Identity Not on file Sexual Orientation Not on file 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 Not on file Not on file Last Filed Vital Signs Vital Sign Reading Time Taken Comments Blood Pressure 110/68 10/30/2016 4:51 PM CDT Pulse 89 10/30/2016 4:51 PM CDT Temperature 36.7 C (98 F) 10/30/2016 4:51 PM CDT Respiratory Rate 18 10/30/2016 4:51 PM CDT Oxygen Saturation - - Inhaled Oxygen Concentration - - Weight 72.6 kg (160 lb) 10/30/2016 4:51 PM CDT Height 167.6 cm (5' 6) 10/30/2016 4:51 PM CDT Body Mass Index 25.82 10/30/2016 4:51 PM CDT Plan of Treatment Health Maintenance Due Date Last Done Comments COLOGUARD (AGES 45-75) - COL ON CA SCREENING 1965 COLON MONITORING 1965 COLONOSCOPY - COLON CA SCREENING 1965 CT COLONOGRAPHY - COLON CA SCREENING 1965 Colorectal Cancer Screening 1965 FIT - COLON CA SCREENING 1965 FLEX SIG - COLON CA SCREENING 1965 LIPID TESTING 1965 MAMMOGRAM 1965 HIV SCREENING 1980 HEPATITIS C SCREENING 03/18/1983 DTAP/TDAP/TD VACCINES (1 - Tdap) 1984 HEPATITIS B VACCINE (1 of 3 - 19+ 3-dose series) 1984 PNEUMOCOCCAL VACCINE 50+ (1 of 1 - PCV) 2015 ZOSTER VACCINE (1 of 2) 2015 COVID-19 VACCINE ( - 2023-2 5 season) 2024 DEPRESSION SCREENING 06/16/2024 INFLUENZA VACCINE (#1) 2025 HIB VACCINE Aged Out No longer eligi ble based on patient's age to complete this topic HPV VACCINE Aged Out No longer eligi ble based on patient's age to complete this topic MENINGOCOCCAL (Group B) VACC INE SHARED DECISION-MAKING Aged Out No longer eligibl e based on patient's age to complete this topic MENINGOCOCCAL GROUPS A/C/Y/W VACCINE Aged Out No longer eligible b ased on patient's age to complete this topic Insurance [employer] Care Teams Outpatient Services Director Relationship Specialty Start Date End Date Nefatly Oden MD [address] [place] [address] PCP - General Family Medicine 02/14/16
--- OUTSIDE RECORDS SUMMARY | 2025-01-16 18:05 | XMS_ITS | Clinical Summary ---
Author Organization [facility] Address [address] [place] [address] Care Team Providers Care [employer] Computer Science Teacher Name Role Phone Manuela Gray MD Primary Care Provider Allergies Active Allergy Reactions Criticality Noted Date [...] wrist joint 03/11/2012 Arthralgia of wrist 11/27/2011 Surgical History Surgery Date Site/Laterality Comments LA CHOLECYSTECTOMY Cholecystectomy - (Added by TW Conv) WRIST SURGERY Wrist Surgery - (Added by TW Conv) LA TOTAL ABDOMINAL HYSTERECT W/WO RMVL TUBE OVARY Hysterectomy - (Added by TW Conv) HYSTERECTOMY Medical History Medical History Date Comments Dislocation of distal radiou lnar joint of wrist Radioulnar joint distal disl ocation, closed - (Added by TW Conv) Other mechanical complicatio n of other internal orthopedic devices, implants and grafts, initial encounter Mechanical complication of i nternal orthopedic device, implant, and graft - (Added by TW Conv) Enterocolitis due to Clostri dium difficile Clostridium difficile coliti s - (Added by TW Conv) Headache Lupus Arthritis Family History Medical History Relation Name Comments Hypertension Brother 1 Family history of essential hypertension - (Added by TW Conv) Hyperlipidemia Brother 2 Family histor y of hyperlipidemia - (Added by TW Conv) Heart disease Brother 3 Family history of cardiac disorder - (Added by TW Conv) Hypertension Brother 4 Family history of hypertension - (Added by TW Conv) Hyperlipidemia Brother 5 High choleste rol - (Added by TW Conv) Nephrolithiasis Brother 6 Family histo ry of kidney stones - (Added by TW Conv) Heart disease Father Family history of cardiac disorder - (Added by TW Conv)/Family history of cardiac disorder - (Added by TW Conv) Hyperlipidemia Father Family histor y of hyperlipidemia - (Added by TW Conv)/High cholesterol - (Added by TW Conv) Hypertension Father Family history of essential hypertension - (Added by TW Conv)/Family history of hypertension - (Added by TW Conv) Throat cancer Maternal Grandfather Pancreatic cancer Maternal Grandmother Arthritis Mother Family history of arthritis - (Added by TW Conv) Heart disease Mother Family history of cardiac disorder - (Added by TW Conv) Hyperlipidemia Mother Family histor y of hyperlipidemia - (Added by TW Conv)/High cholesterol - (Added by TW Conv) Hypertension Mother Family history of essential hypertension - (Added by TW Conv)/Family history of hypertension - (Added by TW Conv) Uterine cancer Mother Colon cancer Sister Relation Name Status Comments Brother 1 Brother 2 Brother 3 Brother 4 Brother 5 Brother 6 Father Maternal Grandfather Maternal Grandmother Mother Sister Social History Tobacco Use Types Packs/Day Years Used Date Smoking Tobacco: Never Tobacco Cessation:Counseling Given: Not Answered Comments No Sex and Gender Information Value Date Recorded Sex Assigned at Not on file Legal Sex Female 9:07 PM BUSINESS AFFAIRS MANAGER Gender Identity Not on file Sexual Orientation Not on file Obstetrics History Last Filed Vital Signs Vital Sign Reading Time Taken Comments Blood Pressure 139/90 08/17/2024 2:08 PM BUSINESS AFFAIRS MANAGER Pulse 84 08/17/2024 2:08 PM BUSINESS AFFAIRS MANAGER Temperature 36 C (96.8 F) 08/17/2024 2:08 PM BUSINESS AFFAIRS MANAGER Respiratory Rate - - Oxygen Saturation 99% 08/17/2024 2:08 PM BUSINESS AFFAIRS MANAGER Inhaled Oxygen Concentration - - Weight 84.7 kg (186 lb 11.2 oz) 08/17/2024 2:08 PM BUSINESS AFFAIRS MANAGER Height 167.6 cm (5' 6) 08/17/2024 2:08 PM BUSINESS AFFAIRS MANAGER Body Mass Index 30.13 08/17/2024 2:08 PM BUSINESS AFFAIRS MANAGER Plan of Treatment Health Maintenance Due Date Last Done Comments Colon Cancer Screening-Colonoscopy 1965 Depression Screening 1965 Hepatitis C Screening 1965 Hepatitis B Screening 1983 Regular Well Visit/Exam 18-64 1983 Pneumococcal vaccine <65 (1 of 2 - PCV) 1984 Zoster Vaccine (1 of 2) 1984 Influenza Vaccine (#1) 2025 Breast Cancer Screening-Mammogram 04/20/2025 04/20/2024, 04/03/2023, 12/19/2021, Additional history exists DTaP/Tdap/Td Vaccine (3 - Td or Tdap) 08/31/2028 08/31/2018, 09/15/2015, 04/01/2005 Procedures Procedure Name Priority Date/Time Associated Diagnosis Comments SCREENING MAMMOGRAM BILATERAL W CONG Schedule Routine, Read Routine (OP Routine) 04/20/2024 2:58 PM BUSINESS AFFAIRS MANAGER Screening mammogram, encounter for from Last 3 Months or Most Recently Relevant to Health Maintenance Results * Screening Mammogram Bilateral W Cong (04/20/2024 2:58 PM BUSINESS AFFAIRS MANAGER) Anatomical Region Laterality Modality Breast Bilateral Mammography Narrative 04/20/2024 3:26 PM BUSINESS AFFAIRS MANAGER Mammogram Technique: Bilateral Digital Breast Tomosynthesis, Bilateral C-view 2D Screening mammogram. Views obtained: bilateral craniocaudal and bilateral mediolateral oblique. Computer Aided Detection was performed. Mammogram Findings: The present examination has been compared to prior imaging studies performed at [facility] on 11/14/2020, 12/19/2021 and 04/03/2023. There are [...] compared to prior imaging studies performed at [facility] on 11/14/2020, 12/19/2021 and 04/03/2023. There are scattered areas of fibroglandular density. There is no suspicious abnormality in either breast. Impression: There is no mammographic evidence of malignancy. Annual screening mammography is recommended. OVERALL FINAL ASSESSMENT: BI-RADS CATEGORY 1: Negative. us Self Screening Mammogram IMG MAMMO PROCEDURES Fi nal Result from Last 3 Months or Most Recently Relevant to Health Maintenance Insurance ANTHEM ACCESS CHOICE ANTHEM ACCESS CHOICE ANTHEM ACCESS CHOICE Care Teams [employer] Computer Science Teacher Relationship Specialty Start Date End Date Manuela Gray MD PCP - General Family Medicine 02/21/23
--- OUTSIDE RECORDS SUMMARY | 2025-01-16 18:05 | XMS_ITS | Encounter Summary ---
Author Organization [facility] Address [address] [place] [address] Care Team Providers Care Action Finisher Name Role Phone Manuela Gray MD Primary Care Provider [phone] Encounter Details Date Type Department Care Team (Latest Contact Info) Description 11/10/2001 Outpatient [facility] [address] [place] [address] [place] [address] [place] [address] [place] [address] PAIN IN LIMB (Primary Dx) Social History Tobacco Use Types Packs/Day Years Used Date Smoking Tobacco: Never Assessed Comments Unknown Sex and Gender Information Value Date Recorded Sex Assigned at Not on file Legal Sex Female 2:54 AM MOTOR 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
--- OUTSIDE RECORDS SUMMARY | 2025-01-16 18:05 | XMS_ITS | Encounter Summary ---
Author Organization [facility] Address [address] [place] [address] Care Team Providers Care Boiler Setter Name Role Phone Manuela Gray MD Primary Care Provider [phone] Encounter Details Date Type Department Care Team (Latest Contact Info) Description 09/28/2001 Outpatient Historical [facility] E[facility] Giron, [place] [address] [place] [address] [place] [address] CERVICALGIA (Primary Dx) Social History Tobacco Use Types Packs/Day Years Used Date Smoking Tobacco: Never Assessed Comments Unknown Sex and Gender Information Value Date Recorded Sex Assigned at Not on file Legal Sex Female 2:54 AM CABLE 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
--- OUTSIDE RECORDS SUMMARY | 2025-01-16 18:05 | XMS_ITS | Clinical Summary ---
Author Organization [facility] Address [address] [address] Phone Care Team Providers Care Medical Representative Name Role Phone Manuela Gray MD Primary Care Provider [phone] Social History Tobacco Use Types Packs/Day Years Used Date Smoking Tobacco: Never Assessed Comments Unknown Sex and Gender Information Value Date Recorded Sex Assigned at Not on file Legal Sex Female 2:54 AM FOIL SPINNER Gender Identity Not on file Sexual Orientation Not on file Plan of Treatment Health Maintenance Due Date Last Done Comments DTAP/TDAP/TD VACCINES (1 - Tdap) 1984 HEPATITIS B VACCINES (1 of 3 - 19+ 3-dose series) 12/1983 HPV/Cotest (21-29) 1986 CERVICAL CANCER SCREENING 1995 HPV/Cotest (30-65) 1995 PAP SMEAR 1995 BREAST CANCER SCREENING 2005 COLORECTAL SCREENING 2010 Colorectal Cancer Screening 2010 FIT-DNA Q 3 years 2010 FIT/FOBT Q 1 year 2010 Flex Sig/CT Colonography Q 5 years 2010 ZOSTER VACCINE (1 of 2) 2015 INFLUENZA VACCINE (#1) 2025 Insurance [facility] BLUE ACCESS CHOICE Care Teams Medical Representative Relationship Specialty Start Date End Date Manuela Gray MD [address] [place] [address] PCP - General Family Practice 09/03/22
--- OUTSIDE RECORDS SUMMARY | 2025-01-16 18:05 | XMS_ITS ---
Author Organization [facility] Address [address] [place], [place] [id number] Care Team Providers Care Gandy Dancer Name Role Phone NIKO NUNEZ MD Primary Care Provider Unavailaida e Yari Cheng Unavailable [phone] REASON FOR VISIT celebrex Encounters Encounter Location Date Provider Diagnosis [facility] [address], [address] [place], [place] [id number] 11/22/2024 Yari Cheng PLAN OF TREATMENT Next Appt Details Provider Name:Yari robles, 02/21/2025 08:00:00 AM, [address], [address], [place], [place], [id number],
--- OUTSIDE RECORDS SUMMARY | 2025-01-16 18:06 | XMS_ITS | Patient Health Record ---
Author Organization [facility] Address [address] [facility] [address] [place], [place] [id number] Care Team Providers Care Trolley Worker Name Role Phone NIKO NUNEZ MD Primary Care Provider Unavailabl e Yari Cheng Unavailable [phone] Amee Burden Unavailable [phone] ALLERGIES Allergen (clinical drug ingredient) Drug/Non Drug Allergy documented on EMR Reaction Allergy Type Onset Date Status Demerol HCl , hives Drug Allergy Activ e Versed (uncoded) Unknown Allergy Act kvng RESULTS Component Value Reference Range Notes Complement C4, Serum Reviewed date:02/14/2024 11:45:05 PM Interpretation: Performing Lab:[facility] [place], [address] [place] [address], Phone - [phone], Director - PhDKrishnai Notes/Report: Complement C4, Serum 22 12-38 mg/dL CBC With Differential/Platel et Reviewed date:02/14/2024 11:45:05 PM Interpretation: Performing Lab:[facility] [place], [address] [facility], Phone - [phone], Director - PhDRicerichi Notes/Report: WBC 3.6 3.4-10.8 x10E3/uL RBC 4.05 3.77-5.28 x10E6/uL Hemoglobin 13.0 11.1-15.9 g/dL Hematocrit 40.4 34.0-46.6 % MCV 100 79-97 fL MCH 32.1 26.6-33.0 pg MCHC 32.2 31.5-35.7 g/dL RDW 13.3 11.7-15.4 % Platelets 206 150-450 x10E3/uL Neutrophils 55 Not Estab. % Lymphs 34 Not Estab. % Monocytes 8 Not Estab. % Eos 2 Not Estab. % Basos 1 Not Estab. % Immature Cells Neutrophils (Absolute) 2.0 1.4-7.0 x10E3/uL Lymphs (Absolute) 1.2 0.7-3.1 x10E3/uL Monocytes(Absolute) 0.3 0.1-0.9 x10E3/uL Eos (Absolute) 0.1 0.0-0.4 x10E3/uL Baso (Absolute) 0.0 0.0-0.2 x10E3/uL Immature Granulocytes 0 Not Estab. % Immature Grans (Abs) 0.0 0.0-0.1 x10E3/uL NRBC Hematology Comments: Sed Rate - Westergren Reviewed date:02/14/2024 11:45:05 PM Interpretation: Performing Lab:[facility] [address], Phone - [phone], Director - [facility] Notes/Report: Sedimentation Rate-Mattawanergren 2 0-40 mm/hr Complement C3, Serum Reviewed date:02/14/2024 11:45:05 PM Interpretation: Performing Lab:[facility] [address], Phone - [phone], Director - [facility] Notes/Report: Complement C3, Serum 125 82-167 mg/dL Comp. Metabolic Panel (14) Reviewed date:02/14/2024 11:45:05 PM Interpretation: Performing Lab:[facility] [address], Phone - [phone], Director - [facility] Notes/Report: Glucose 85 70-99 mg/dL BUN 20 6-24 mg/dL Creatinine 0.80 0.57-1.00 mg/dL eGFR 85 >59 mL/min/1.73 BUN/Creatinine Ratio 25 9-23 Sodium 145 134-144 mmol/L Potassium 4.3 3.5-5.2 mmol/L Chloride 108 96-106 mmol/L Carbon Dioxide, Total 23 20-29 mmol/L Calcium 9.7 8.7-10.2 mg/dL Protein, Total 6.4 6.0-8.5 g/dL Albumin 4.3 3.8-4.9 g/dL Globulin, Total 2.1 1.5-4.5 g/dL Bilirubin, Total 0.6 0.0-1.2 mg/dL Alkaline Phosphatase 63 44-121 IU/L AST (SGOT) 28 0-40 IU/L ALT (SGPT) 20 0-32 IU/L VITAMIN B12 Reviewed date:02/14/2024 11:45:05 PM Interpretation: Performing Lab:[facility] [place], [address] [facility], Phone - [phone], Director - [facility] Notes/Report: Vitamin B12 504 196-8868 pg/mL SED RATE BY MODIFIED DENIS BARR Reviewed date:05/21/2024 02:01:14 PM Interpretation: Performing Lab:[facility], [id number] Christian Cuello MD Notes/Report: NON-FASTING; NON-FASTING; NON-FASTING FASTING:YES FASTING: YES SED RATE BY SUSAN HONG 2 < OR = 30 mm/h C-REACTIVE PROTEIN Reviewed date:05/21/2024 02:01:14 PM Interpretation: Performing Lab:[facility] [id number] Christian Cuello MD Notes/Report: NON-FASTING; NON-FASTING; NON-FASTING FASTING:YES FASTING: YES C-REACTIVE PROTEIN <3.0 <8.0 mg/L URIC ACID Reviewed date:05/21/2024 02:01:14 PM Interpretation: Performing Lab:[facility], [id number] Christian Cuello MD Notes/Report: NON-FASTING; NON-FASTING; NON-FASTING FASTING:YES FASTING: YES URIC ACID 2.7 2.5-7.0 mg/dL Therapeutic ta rget for gout patients: <6.0 mg/dL PTH, INTACT AND CALCIUM Reviewed date:05/21/2024 02:01:14 PM Interpretation: Performing Lab:[facility] [id number] Christian Cuello MD Notes/Report: NON-FASTING; NON-FASTING FASTING:YES FASTING: YES PARATHYROID HORMONE, INTACT 33 16-77 pg/mL Interpretive Guide Intact PTH Calcium ------- Normal Parathyroid Normal Normal Hypoparathyroidism Low or Low Normal Low Hyperparathyroidism Primary Normal or High High Secondary High Normal or Low Tertiary High High Non-Parathyroid Hypercalcemia Low or Low Normal High CALCIUM 9.6 8.6-10.4 mg/dL AST (SGOT) Reviewed date:08/25/2024 06:57:07 AM Interpretation: Performing Lab:[address], Phone - [phone], Director - [facility] Notes/Report: AST (SGOT) 27 0-40 IU/L Creatinine, Serum Reviewed date:08/25/2024 06:58:53 AM Interpretation: Performing Lab:[facility], Phone - [phone], Director - [facility] Notes/Report: Creatinine 0.69 0.57-1.00 mg/dL eGFR 100 >59 mL/min/1.73 ALT (SGPT) Reviewed date:08/25/2024 06:57:12 AM Interpretation: Performing Lab:[facility], Phone - [phone], Director - [facility] Notes/Report: ALT (SGPT) 22 0-32 IU/L CBC With Differential/Platel et Reviewed date:08/25/2024 07:02:15 AM Interpretation: Performing Lab:[facility], Phone - [phone], Director - [facility] Notes/Report: WBC 5.0 3.4-10.8 x10E3/uL RBC 4.05 3.77-5.28 x10E6/uL Hemoglobin 13.0 11.1-15.9 g/dL Hematocrit 39.5 34.0-46.6 % MCV 98 79-97 fL MCH 32.1 26.6-33.0 pg MCHC 32.9 31.5-35.7 g/dL RDW 13.7 11.7-15.4 % Platelets 263 150-450 x10E3/uL Neutrophils 51 Not Estab. % Lymphs 25 Not Estab. % Monocytes 8 Not Estab. % Eos 15 Not Estab. % Basos 1 Not Estab. % Immature Cells Neutrophils (Absolute) 2.6 1.4-7.0 x10E3/uL Lymphs (Absolute) 1.3 0.7-3.1 x10E3/uL Monocytes(Absolute) 0.4 0.1-0.9 x10E3/uL Eos (Absolute) 0.8 0.0-0.4 x10E3/uL Baso (Absolute) 0.1 0.0-0.2 x10E3/uL Immature Granulocytes 0 Not Estab. % Immature Grans (Abs) 0.0 0.0-0.1 x10E3/uL NRBC Hematology Comments: AST (SGOT) Reviewed date:11/21/2024 09:38:26 PM Interpretation: Performing Lab:[facility] [address], Phone - [phone], Director - [facility] Notes/Report: AST (SGOT) 22 0-40 IU/L Creatinine, Serum Reviewed date:11/21/2024 09:38:26 PM Interpretation: Performing Lab:[facility] [address], Phone - [phone], Director - [facility] Notes/Report: Creatinine 0.68 0.57-1.00 mg/dL eGFR 100 >59 mL/min/1.73 ALT (SGPT) Reviewed date:11/21/2024 09:38:26 PM Interpretation: Performing Lab:[facility] [address], Phone - [phone], Director - [facility] Notes/Report: ALT (SGPT) 16 0-32 IU/L Complement C4, Serum Reviewed date:11/21/2024 09:38:26 PM Interpretation: Performing Lab:[facility] [address], Phone - [phone], Director - [facility] Notes/Report: Complement C4, Serum 23 12-38 mg/dL CBC With Differential/Platel et Reviewed date:11/21/2024 09:38:26 PM Interpretation: Performing [facility] [address] [place] [address], Phone - [phone], Director - [facility] Notes/Report: WBC 4.1 3.4-10.8 x10E3/uL RBC 4.10 [...] Westergren Reviewed date:11/21/2024 09:38:26 PM Interpretation: Performing Lab:[facility] [place] [address] [place] [address], Phone - [phone], [facility] Notes/Report: Sedimentation Rate-Westergren 4 0-40 mm/hr Complement C3, Serum Reviewed date:11/21/2024 09:38:26 PM Interpretation: Performing [facility] [address] [place] [address], Phone - [phone], [facility] Notes/Report: Complement C3, Serum 140 82-167 mg/dL Urinalysis, Complete Reviewed date:11/21/2024 09:38:26 PM Interpretation: Performing Lab:[facility] [address], Phone - [phone], Director - Lashanda Notes/Report: Specific [place] 1.022 1.005-1.030 pH 7.0 5.0-7.5 Urine-Color Yellow [...] None seen None seen/Few Yeast Trichomonas Comment REASON FOR REFERRAL No Information MEDICATIONS Medication SIG (Take, Route, Frequency, Duration) Notes Start Date End Date Status CeleBREX 100 mg 1 cap(s) orally 2 ti mes a day for 30 days Active levothyroxine 13 mcg (0.013 mg) 1 cap(s) orally once a day Active topiramate 25 mg 1 tab(s) orally 2 ti mes a day Active SUMAtriptan 100 mg 1 tab(s) orally once Active azaTHIOprine 50 mg 1 tab(s) orally 2 TI MES A DAY for 90 days Active calcium caltrate w/vitamin D3 400/500 iu 4 tab(s) orally daily Active Tumeric orally Active Vitamin D3 250 mcg 1 cap(s) orally once a week Active pregabalin 150 mg 1 cap(s) orally 2 ti mes a day Active Cranberry orally as directed A ctive amitriptyline 25 mg 1 tab(s) orally once a day (at bedtime) Active multivitamin Active magnesium glycinate 200 mg 2 tab(s) oral ly once a day (after a meal) Active atorvastatin 20 mg 1 tab(s) orally once a day Active Probiotics orally as directed Active Cymbalta 30 mg 1 cap(s) orally once a day for 90 days Active PROBLEMS Problem Type ICD Code Onset Dates Problem Status W/U Status Risk SNOMED Code Notes Problem Other fpc (current) drug therapy (Z79.899) Active confirmed 770361737 Problem Vitamin D deficiency (E55.9) Active confirmed 84480349 Problem Pain in right knee (M25.561) Active confirmed 78339351 Problem Connective tissue disease (M35.9) Active confirmed 807597916 Problem Hypercalcemia (E83.52) Active confirmed 48192522 Problem Elevated LFTs (R79.89) Active confirmed 477424184 Problem Primary generalized (osteo)arthritis (M15.0) Active confirmed 045728807 Problem Pain in left knee (M25.562) Active confirmed Pain of left knee joint (finding) (838251014457 107) Problem Never smoked cigarettes (Z78.9) Active confirmed 001874839 Problem Non-smoker (Z78.9) Active confirmed 839 2000 Problem Paresthesia (R20.2) Active confirmed 89883751 Problem Radicular pain of both lower extremities (M54.10) Active confirmed VITAL SIGNS Heart Rate 77 /min 11/15/2024 Blood pressure diastolic 81 mm Hg 11/15/2024 Height 66 in 11/15/2024 Blood pressure systolic 120 mm Hg 11/15/2024 Weight 186 lbs 11/15/2024 BMI 30.02 kg/m2 11/15/2024 Encounters Encounter Location Date Provider [facility] [address] [place] [address], [address] [place], [place] [id number] 02/12/2024 Amee Hartig Connective tissue disease M35.9 ; Elevated LFTs R79.89 ; Primary generalized (osteo)arthritis M15.0 ; Other long term care administrator (current) drug therapy Z79.899 ; Radicular pain of both lower extremities M54.10 and Paresthesia R20.2 [facility] [address] [place] [address], [address] [place], [place] [id number] 05/17/2024 Amee Hartig Connective tissue disease M35.9 ; Primary generalized (osteo)arthritis M15.0 ; Other fpc (current) drug therapy Z79.899 ; Toe pain, left M79.675 ; Hypercalcemia E83.52 ; Paresthesia R20.2 ; Radicular pain of both lower extremities M54.10 and Elevated LFTs R79.89 [facility] [address] [place] [address], [address] [place], [place] [id number] 08/24/2024 Yari Cheng Connective tissue disease M35.9 ; Primary generalized (osteo)arthritis M15.0 ; Other fpc (current) drug therapy Z79.899 ; Toe pain, left M79.675 ; Hypercalcemia E83.52 ; Paresthesia R20.2 ; Radicular pain of both lower extremities M54.10 and Elevated LFTs R79.89 [facility] [address] [id number] 11/24/2024 Amee Burden [facility] [address] [place] [address], [address] [id number] 11/15/2024 Amee Burden Connective tissue disease M35.9 ; Primary generalized (osteo)arthritis M15.0 ; Other long term care administrator (current) drug therapy Z79.899 ; Toe pain, left M79.675 ; Hypercalcemia E83.52 ; Paresthesia R20.2 ; Radicular pain of both lower extremities M54.10 and Elevated LFTs R79.89 [facility] [address] [place] [id number] 05/07/2024 Yari Cheng [facility] [address] [place] [id number] 08/03/2024 Yari Cheng Connective tissue disease M35.9 [facility] [address] [place] [id number] 11/22/2024 Yari Cheng [facility] [address] [place] [id number] 02/12/2024 Yari Cheng [facility] [address] [place] [id number] 03/12/2024 Yari Cheng [facility] [address] [place] [id number] 10/13/2024 Yari Cheng [facility] [address] [place] [id number] 11/15/2024 Yari Cheng ASSESSMENTS Encounter Date Diagnosis Assessment Notes Treatment Notes Treatment Clinical Notes Section Notes 02/12/2024 Connective tissue disease (ICD-10 - M35.9) Stop HCQ and Continue AZA. GI following colitis and LFTs. Cont eye exams. Avoid sun exposure. Had a hysterectomy but no sx's of menapause yet- she wants to wait on DXA. Raynauds- keep warm. Seeing Neuro for paresthesia issues. , Labwork drawn to evaluate disease process and to monitor any adverse effects of medications. 02/12/2024 Elevated LFTs (ICD-10 - R79.89) Stop HCQ and Continue AZA. GI following colitis and LFTs. Cont eye exams. Avoid sun exposure. Had a hysterectomy but no sx's of menapause yet- she wants to wait on DXA. Raynauds- keep warm. Seeing Neuro for paresthesia issues. , Labwork drawn to evaluate disease process and to monitor any adverse effects of medications. 05/17/2024 Connective tissue disease (ICD-10 - M35.9) Continue AZA. GI following colitis and LFTs. Cont eye exams. Avoid sun exposure. Had a hysterectomy but no sx's of menapause yet- she wants to wait on DXA. Raynauds- keep warm. Seeing Neuro for paresthesia issues. Continue Duloxetine. Labwork drawn to evaluate disease process and to monitor any adverse effects of medications. 05/17/2024 Primary generalized (osteo)arthritis (ICD-10 - M15.0) Continue AZA. GI following colitis and LFTs. Cont eye exams. Avoid sun exposure. Had a hysterectomy but no sx's of menapause yet- she wants to wait on DXA. Raynauds- keep warm. Seeing Neuro for paresthesia issues. Continue Duloxetine. Labwork drawn to evaluate disease process and to monitor any adverse effects of medications. 08/24/2024 Connective tissue disease (ICD-10 - M35.9) Continue AZA. GI following colitis and LFTs. Cont eye exams. Avoid sun exposure. Had a hysterectomy but no sx's of menapause yet- she wants to wait on DXA. Raynauds- keep warm. Seeing Neuro for paresthesia issues. Continue Duloxetine. Check labs. PCP follows TSH. Ask about a sleep study 08/24/2024 Primary generalized (osteo)arthritis (ICD-10 - M15.0) Continue AZA. GI following colitis and LFTs. Cont eye exams. Avoid sun exposure. Had a hysterectomy but no sx's of menapause yet- she wants to wait on DXA. Raynauds- keep warm. Seeing Neuro for paresthesia issues. Continue Duloxetine. Check labs. PCP follows TSH. Ask about a sleep study 11/15/2024 Connective tissue disease (ICD-10 - M35.9) Continue AZA. GI following colitis and LFTs. Cont eye exams. Avoid sun exposure. Had a hysterectomy but no sx's of menapause yet- she wants to wait on DXA. Raynauds- keep warm. Seeing Neuro for paresthesia issues. Continue Duloxetine. Check labs. PCP follows TSH. Ask about a sleep study 08/03/2024 Connective tissue disease (ICD-10 - M35.9) 02/12/2024 Primary generalized (osteo)arthritis (ICD-10 - M15.0) Stop HCQ and Continue AZA. GI following colitis and LFTs. Cont eye exams. Avoid sun exposure. Had a hysterectomy but no sx's of menapause yet- she wants to wait on DXA. Raynauds- keep warm. Seeing Neuro for paresthesia issues. , Labwork drawn to evaluate disease process and to monitor any adverse effects of medications. 05/17/2024 Other long term care administrator (current) drug therapy (ICD-10 - Z79.899) Continue AZA. GI following colitis and LFTs. Cont eye exams. Avoid sun exposure. Had a hysterectomy but no sx's of menapause yet- she wants to wait on DXA. Raynauds- keep warm. Seeing Neuro for paresthesia issues. Continue Duloxetine. Labwork drawn to evaluate disease process and to monitor any adverse effects of medications. 08/24/2024 Other long term care administrator (current) drug therapy (ICD-10 - Z79.899) Continue [...] follows TSH. Ask about a sleep study 02/12/2024 Other long term care administrator (current) drug therapy (ICD-10 - Z79.899) Stop HCQ and Continue AZA. GI following colitis and LFTs. Cont eye exams. Avoid sun exposure. Had a hysterectomy but no sx's of menapause yet- she wants to wait on DXA. Raynauds- keep warm. Seeing Neuro for paresthesia issues. , Labwork drawn to evaluate disease process and to monitor any adverse effects of medications. 05/17/2024 Toe pain, left (ICD-10 - M79.675) Continue AZA. GI following colitis and LFTs. Cont eye exams. Avoid sun exposure. Had a hysterectomy but no sx's of menapause yet- she wants to wait on DXA. Raynauds- keep warm. Seeing Neuro for paresthesia issues. Continue Duloxetine. Labwork drawn to evaluate disease process and to monitor any adverse effects of medications. 08/24/2024 Toe pain, left (ICD-10 - M79.675) Continue AZA. GI following colitis and LFTs. Cont eye exams. Avoid sun exposure. Had a hysterectomy but no sx's of menapause yet- she wants to wait on DXA. Raynauds- keep warm. Seeing Neuro for paresthesia issues. Continue Duloxetine. Check labs. PCP follows TSH. Ask about a sleep study 11/15/2024 Other long term care administrator (current) drug therapy (ICD-10 - Z79.899) Continue AZA. GI following colitis and LFTs. Cont eye exams. Avoid sun exposure. Had a hysterectomy but no sx's of menapause yet- she wants to wait on DXA. Raynauds- keep warm. Seeing Neuro for paresthesia issues. Continue Duloxetine. Check labs. PCP follows TSH. Ask about a sleep study 02/12/2024 Radicular pain of both lower extremities (ICD-10 - M54.10) Stop HCQ and Continue AZA. GI following colitis and LFTs. Cont eye exams. Avoid sun exposure. Had a hysterectomy but no sx's of menapause yet- she wants to wait on DXA. Raynauds- keep warm. Seeing Neuro for paresthesia issues. , Labwork drawn to evaluate disease process and to monitor any adverse effects of medications. 05/17/2024 Hypercalcemia (ICD-10 - E83.52) Continue AZA. GI following colitis and LFTs. Cont eye exams. Avoid sun exposure. Had a hysterectomy but no sx's of menapause yet- she wants to wait on DXA. Raynauds- keep warm. Seeing Neuro for paresthesia issues. Continue Duloxetine. Labwork drawn to evaluate disease process and to monitor any adverse effects of medications. 08/24/2024 Hypercalcemia (ICD-10 - E83.52) Continue AZA. GI [...] follows TSH. Ask about a sleep study 02/12/2024 Paresthesia (ICD-10 - R20.2) Stop HCQ and Continue AZA. GI following colitis and LFTs. Cont eye exams. Avoid sun exposure. Had a hysterectomy but no sx's of menapause yet- she wants to wait on DXA. Raynauds- keep warm. Seeing Neuro for paresthesia issues. , Labwork drawn to evaluate disease process and to monitor any adverse effects of medications. 05/17/2024 Paresthesia (ICD-10 - R20.2) Continue AZA. GI following colitis and LFTs. Cont eye exams. Avoid sun exposure. Had a hysterectomy but no sx's of menapause yet- she wants to wait on DXA. Raynauds- keep warm. Seeing Neuro for paresthesia issues. Continue Duloxetine. Labwork drawn to evaluate disease process and to monitor any adverse effects of medications. 08/24/2024 Paresthesia (ICD-10 - R20.2) Continue AZA. GI [...] follows TSH. Ask about a sleep study 05/17/2024 Radicular pain of both lower extremities (ICD-10 - M54.10) Continue AZA. GI following colitis and LFTs. Cont eye exams. Avoid sun exposure. Had a hysterectomy but no sx's of menapause yet- she wants to wait on DXA. Raynauds- keep warm. Seeing Neuro for paresthesia issues. Continue Duloxetine. Labwork drawn to evaluate disease process and to monitor any adverse effects of medications. 08/24/2024 Radicular pain of both lower extremities (ICD-10 [...] follows TSH. Ask about a sleep study 05/17/2024 Elevated LFTs (ICD-10 - R79.89) Continue AZA. GI following colitis and LFTs. Cont eye exams. Avoid sun exposure. Had a hysterectomy but no sx's of menapause yet- she wants to wait on DXA. Raynauds- keep warm. Seeing Neuro for paresthesia issues. Continue Duloxetine. Labwork drawn to evaluate disease process and to monitor any adverse effects of medications. 08/24/2024 Elevated LFTs (ICD-10 - R79.89) Continue AZA. [...] about a sleep study PLAN OF TREATMENT Pending Test Test Name Order Date X ray : Spines, lumbar- outside order Uric Acid, Serum 05/17/2024 AST (SGOT) 04/26/2020 AST (SGOT) 01/24/2020 AST (SGOT) 04/17/2015 AST (SGOT) 10/01/2019 Creatinine, Serum 10/01/2019 Creatinine, Serum 04/26/2020 Creatinine, Serum 01/24/2020 Creatinine, Serum 04/17/2015 ALT (SGPT) 04/17/2015 ALT (SGPT) 10/01/2019 ALT (SGPT) 04/26/2020 ALT (SGPT) 01/24/2020 Complement C4, Serum 04/26/2020 Complement C4, Serum 10/01/2019 Complement C4, Serum 06/28/2021 CBC With Differential/Platelet 0 CBC With Differential/Platelet 0 CBC With Differential/Platelet 5 CBC With Differential/Platelet 0 Sed Rate - Westergren 06/28/2021 Sed Rate - Westergren 05/17/2024 Sed Rate - Westergren 04/26/2020 Sed Rate - Westergren 10/01/2019 Complement C3, Serum 06/28/2021 Complement C3, Serum 04/26/2020 Complement C3, Serum 10/01/2019 C-Reactive Protein, Quant 10/01/2019 C-Reactive Protein, Quant 05/17/2024 C-Reactive Protein, Quant 06/28/2021 Calcium 05/17/2024 Parathyroid Hormone(PTH),Intact 05/17/20 24 CP (IH) 03/18/2013 CP (IH) 11/03/2013 X ray : Hand left- outside order 017 X ray : Hand left- outside order 020 X ray : Hand left- outside order 024 X ray : Hand right- outside order 2019 X ray : Hand right- outside order 2023 X ray : Hand right- outside order 2016 X ray : Spines, cervical- outside order 08/23/2022 DsDNA by Crithidia by indirect immunoflo resence 09/12/2010 X ray : Knee, right 3 views- outside ord er 10/12/2021 X ray : Knee, left, 3 views- outside ord er 04/26/2020 X ray : Foot Left- outside order 017 X ray : Foot Right- outside order 2016 Lab slip given 01/24/2020 Lab slip given 10/01/2019 Lab slip given 06/28/2021 Lab slip given 04/26/2020 Lab slip given 05/17/2024 -Xray slip given 10/12/2021 -Xray slip given 10/23/2016 -Xray slip given 11/12/2023 -Xray slip given 04/26/2020 -Xray slip given 08/23/2022 X ray : Knee, right 2 views- outside ord er 10/23/2016 X ray : Knee, right 2 views- outside ord er 11/12/2023 X ray : Knee, left 2 views- outside orde r 10/23/2016 X ray : Knee, left 2 views- outside orde r 11/12/2023 NCS : Lower Extremities, Bilateral 08/23 DS DNA ANTIBODY, CRITHIDIA, IFA W/REFL Q UEST 03/05/2021 Next Appt Details Provider Name:Yari Arriaga orf, 02/21/2025 08:00:00 AM, [address], [address], [place], [place], [id number], Insurance Providers Payer Name Payer Address Payer Phone Subscriber Number Group Number Insured Name Patient Relationship to Insured Coverage Start Date Coverage End Date Sonya [facility] [address] [place] [address] [id number] PepitoAlia champion Self - patient is the insured 0 MEDICAL (GENERAL) HISTORY Medical History History ICD Code Bruises easily Migraine head aches Dizziness Swelling of ankles/feet Varicose veins Constipation Nausea Hot flashes Anxiety Depression HBV Hyperthyroidism Surgical History Surgery Date(Month/Year) Colonoscopy 1016 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
--- NOTE | 2025-01-16 18:29 | ED_ITS ---
HPI - Female Genitourinary General Chief complaint: Urogenital-Female Stated complaint: burning when urinating Time Seen by Provider: 01/16/25 18:06 Source: patient Mode of arrival: ambulatory Limitations: no limitations History of Present Illness HPI Narrative: patient is a 59-year-old female with right flank pain and right back pain for the past week. She started to urinate blood and clots today. MD elicited complaint: UTI, back pain ( On the right more than left) and flank pain ( right-side) Pertinent past history: other ( hyperlipidemia, hypothyroid, migraines) Onset (ago): week(s) ( 1) Location of symptoms: low back ( right) and flank ( right) Severity: moderate Female Urogenital Radiation: R Flank Severity scale (1-10): 6 Quality of pain: sharp Consistency: constant Vaginal discharge: none Vaginal bleeding: none Urinary symptoms: Dysuria and Flank Pain ( right) Exacerbating factors: urination Relieving factors: none Associated symptoms: nausea and back pain Treatment prior to arrival: none Patient : No Related Data Home Medications ?Medication ?Instructions ?Recorded ?Confirmed ?Last Taken ?Type multivitamin 1 tablet PO DAILY 06/07/19 11/10/24 Unknown History turmeric root extract 500 mg 500 mg PO DAILY 06/07/19 11/10/24 Unknown History capsule azathioprine 50 mg tablet 50 mg PO DAILY 01/20/24 11/10/24 Unknown History pregabalin 100 mg capsule (Lyrica) 150 mg PO TID 05/07/24 11/10/24 Unknown History Allergies Allergy/AdvReac Type Severity Reaction Status Date / Time No Known Allergies Allergy Verified 01/16/25 18:10 Review of Systems 2 Review of Systems: All systems reviewed & are unremarkable except as noted in HPI and below Constitutional: Constitutional: Reports no additional constitutional complaints Eyes: Eyes: Reports no additional eye complaints ENT: Reports system reviewed and no additional complaints, except as documented Cardiovascular: Cardiovascular: Reports no additional cardiovascular complaints Respiratory: Respiratory: Reports no additional respiratory complaints Gastrointestinal: Gastrointestinal: Reports no additional gastrointestinal complaints Genitourinary: Genitourinary: Reports no additional female genitourinary complaints Musculoskeletal: Musculoskeletal: Reports no additional musculoskeletal complaints Integumentary/Breasts: Skin/Breast: Reports system reviewed and no additional complaints, except as docu Neurologic: Reports system reviewed and no additional complaints, except as documented Psychiatric: Psychiatric: Reports no additional psychiatric complaints Endocrine: Endocrine: Reports no additional endocrine complaints Hematologic/Lymphatic: Hematologic/Lymphatic: Reports no additional hematologic/lymphatic complaints Allergic/Immunologic: Allergic/Immunologic: Reports no additional allergic/immunologic complaints [facility] Past Medical History Medical History Neuropathy (~10/2022) Fractured fibula DJD (degenerative joint disease) Dyslipidemia Migraines Bilateral breast cysts Ovarian cyst (~2014) Pyelonephritis (~2003) Hyperlipidemia SLE (systemic lupus erythematosus) Surgical History Surgical History History of decompression of ulnar nerve (~2010) History of breast biopsy (06/12/07) left breast cyst excision--benign right breast bx--benign History of repair of dehiscence of vaginal cuff (04/26/04) postcoital bleeding History of exploratory laparotomy (11/17/03) pelvic abscess History of gynecologic surgery (~2000) uterine balloon therapy History of tubal ligation (~1997) History of colonoscopy (06/23/15) History of cholecystectomy (~2012) History of hysterectomy (11/10/03) uterine prolapse, dysmenorrhea Family History Family History Mother Family history of thyroid disease Family history of arthritis Osteopenia Father Family history of cardiovascular disease Hypertension Parkinsons disease, secondary Other Breast cancer maternal aunt Son Multiple sclerosis Sibling DVT of lower extremity, bilateral Carcinoma of colon Sibling Carcinoma of colon Hypertension Social History Social History Smoking status: Never smoker Second hand tobacco smoke exposure: No Alcohol intake: former Alcohol use details: On occasion. 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 Gender identity (if verbalized by the patient): Female Sexual Orientation (if Verbalized by the Patient): Straight or Heterosexual Exam 2 Const: General: healthy appearing Nutritional Appearance: well nourished Orientation/consciousness: patient oriented x3 HENMT: Head: normal to inspection Ears: external ears normal F glenny/Nose/Sinus: Normal external nose present Eyes: Conjunctivae: conjunctivae normal Pupils: Equal, round and reactive pupils present EOM: EOMs intact bilaterally Neck: Neck: normal visual inspection Chest: Chest palpation & inspection: normal inspection of the chest Resp: Effort & Inspection: normal respiratory effort and not labored A uscultation: clear to auscultation bilaterally and no crackles Cardio: Rate: regular rate Rhythm: regular rhythm Heart sounds: no murmurs GI: Inspection: non-distended GI Palp: Yes Soft to palpation, Yes Tenderness to palpation present (GI) ( right flank), No Guarding due to palpation present (GI), No Rigid due to palpation, No Hernia present, No Palpable mass present and No Rebound tenderness present Auscultation: normal bowel sounds : General: Yes bladder normal to palpation Back/Spine/Pelvis: Back: No no CVA tenderness and CVA tenderness ( right) O ther: right flank and right mid back to lower back pain on palpation Skin: General skin exam: normal color Rashes: no rashes Wounds: no wounds Neuro: General: patient oriented x3, moves all extremities, no meningeal signs and no focal motor deficits Cranial nerves: Yes Nystagmus not present S peech: normal speech Gait exam (Neuro): Normal gait present Extrem: General: normal to inspection Psych: Appearance: grossly normal Mental Status: mental status grossly normal Affect: normal affect Course Vital Signs Vital signs: Vital Signs Temperature 37.3 C 01/16/25 18:04 Pulse Rate 99 01/16/25 18:04 Respiratory Rate 16 01/16/25 18:04 Blood Pressure 137/88 01/16/25 18:04 Pulse Oximetry 93 01/16/25 18:04 Oxygen Delivery Room Air 01/16/25 18:04 Temperature 37.2 C 01/16/25 20:40 Pulse Rate 86 01/16/25 20:40 Respiratory Rate 18 01/16/25 20:40 Blood Pressure 126/85 01/16/25 20:40 Pulse Oximetry 97 01/16/25 20:40 Oxygen Delivery Room Air 01/16/25 20:40 MDM - Female Genitourinary MDM Narrative Medical decision making narrative: patient is a 59-year-old female with right flank pain and hematuria. We will do a workup at this time. Lab Data Attestation: I reviewed the patient's lab results. 01/16/25 19:24 01/16/25 19:24 Labs: Lab Results 01/16/25 01/16/25 Range/Units 18:10 19:24 WBC 8.7 (4.8-10.8) K/mm3 RBC 4.13 L (4.20-5.40) M/mm3 Hgb 13.0 (12.0-15.0) g/dL Hct 40.2 (35.0-49.0) % MCV 97.3 (78.0-102.0) fL MCH 31.5 H (27.0-31.0) pg MCHC 32.3 (32-36) g/dL RDW 14.0 (11.6-14.4) % Plt Count 213 (150-420) K/mm3 MPV 9.6 (9.2-11.8) fl Immature Gran % (Auto) 0.2 H (0.0-0.0) % Neut % (Auto) 76.1 H (50.0-70.0) % Lymph % (Auto) 16.0 L (18.0-42.0) % [place] % (Auto) 6.1 (2.0-11.0) % Eos % (Auto) 1.3 (1.0-6.0) % Baso % (Auto) 0.3 (0.0-1.0) % Lymph # (Auto) 1.39 (1.10-4.50) K/mm3 [place] # (Auto) 0.53 (0.10-0.90) K/mm3 Eos # (Auto) 0.11 (0.02-0.50) K/mm3 Baso # (Auto) 0.03 (0.00-0.10) K/mm3 Abs Immat Gran (auto) 0.02 H (0.00-0.00) K/mm3 Absolute Neuts (auto) 6.60 (1.70-7.20) K/mm3 Absolute Nucleated RBC 0.00 (0.00-0.00) K/mm3 Nucleated RBC % 0.0 (0-0.0) % PT 10.5 (9.50-12.1) Seconds INR 0.9 APTT 25.7 (23.9-30.70) Sec Sodium 145 (137-145) mmol/L Potassium 3.9 (3.4-5.0) mmol/L Chloride 111 H (98-107) mmol/L Carbon Dioxide 25 (22-30) mmol/L Anion Gap 9 (4-12) mmol/L BUN 21 H (7-17) mg/dL Creatinine 0.69 L (0.7-1.0) mg/dL Estim Creat Clear Calc 83 ml/min Estimated GFR > 60 (59 - ) Glucose 83 (65-110) mg/dL Calculated Osmolality 302 H (285-295) mOsm/kg Lactic Acid 1.1 (0.4-2.0) mmol/L Calcium 9.2 (8.4-10.2) mg/dL Total Bilirubin 0.7 (0.2-1.3) mg/dL AST 59 H (14-36) U/L ALT 37 H (6-35) U/L Alkaline Phosphatase 98 (38-126) U/L Total Protein 7.5 (6.3-8.2) g/dL Albumin 4.7 (3.5-5.1) g/dL Urine Color Dark orange (Yellow) Urine Appearance Turbid A (Clear) Urine pH 6.5 (5.0-8.0) Ur Specific [place] 1.025 H (1.010-1.020) Urine Protein 3+ H (Negative) Urine Glucose (UA) Trace H (Negative) Urine Ketones Trace H (Negative) Ur Blood (Man) 3+ H (Negative) Urine Nitrate Positive H (Negative) Urine Bilirubin 1+ H (Negative) Urine Urobilinogen >=8.0 (0.2-1.0) mg/dL Leukocyte Esterase Rfl 2+ H (Negative) SCOOTER/UL Urine RBC >100 H (0-2) /hpf Urine WBC >100 (0-3) /hpf Urine WBC Clumps Present H (None) /hpf Urine Bacteria 4+ H (None) /hpf Imaging Data Attestation: I personally reviewed and interpreted this imaging study as follows: Radiologist's impression: CT scan of the abdomen and pelvis showed cystitis and otherwise negative for acute process Discharge Plan Discharge Clinical Impression: Acute hemorrhagic cystitis Patient Disposition: Home Condition: Stable Instructions: Antibiotic Form, Urinary Tract Infection in Women (ED) Additional Instructions: please follow-up with the primary doctor in the next week. Please be seen again if the bleeding does not stop over the next few days on antibiotics. Please have the urinalysis rechecked at your follow-up to make sure there is not further workup with urologist or traveling repair accountant needed at that time. Patient Language: [place] Prescriptions: New ciprofloxacin HCl [Cipro] 500 mg tablet 500 mg PO BID 7 Days Qty: 14 0RF No Action azathioprine 50 mg tablet 50 mg PO DAILY amitriptyline 25 mg tablet 25 mg PO QHS Qty: 1 0RF duloxetine 30 mg capsule, delayed rel sprinkle 30 mg PO DAILY Qty: 1 0RF pregabalin [Lyrica] 100 mg capsule 150 mg PO TID multivitamin Tablet 1 tablet PO DAILY turmeric root extract 500 mg capsule 500 mg PO DAILY sumatriptan succinate 100 mg tablet 100 mg PO ONCE Qty: 14 3RF Rx Instructions: TAKE NEEDED PER DIRECTIONS. clobetasol 0.05 % cream 1 applic topical DAILY Qty: 60 1RF cholestyramine (with sugar) 4 gram powder in packet 4 g PO DAILY Qty: 90 0RF Rx Instructions: administer w/meal; avoid other meds within 1hr before or 4-6hr after dose levothyroxine [Levoxyl] 25 mcg tablet 25 mcg PO DAILY Qty: 90 1RF atorvastatin 20 mg tablet 20 mg PO DAILY Qty: 30 3RF topiramate 25 mg tablet See Rx Instructions .ROUTE .COMPLEX Qty: 60 4RF Dose Instruction: TAKE 1 TABLET BY MOUTH TWICE DAILY Rx Instructions: TAKE 1 TABLET BY MOUTH TWICE DAILY Follow-up/Referrals: Manuela Gray MD [Primary Care Provider] - Time of Disposition: 20:19
--- OUTSIDE RECORDS SUMMARY | 2025-01-16 18:36 | XMS_ITS | Referral Summary ---
Author Organization [facility] Address [address] [place] [address] Care Team Providers Care Volleyball Commentator Name Role Phone Manuela Gray MD Primary Care Provider [phone] Allergies Active Allergy Reactions Criticality Noted Date [...] on file Legal Sex Female 9:07 PM MANUFACTURING MECHANIC Gender Identity Not on file Sexual Orientation Not on file Last Filed Vital Signs Vital Sign Reading Time Taken Comments Blood Pressure 139/90 08/17/2024 2:08 PM MANUFACTURING MECHANIC Pulse 84 08/17/2024 2:08 PM MANUFACTURING MECHANIC Temperature 36 C (96.8 F) 08/17/2024 2:08 PM MANUFACTURING MECHANIC Respiratory Rate - - Oxygen Saturation 99% 08/17/2024 2:08 PM MANUFACTURING MECHANIC Inhaled Oxygen Concentration - - Weight 84.7 kg (186 lb 11.2 oz) 08/17/2024 2:08 PM MANUFACTURING MECHANIC Height 167.6 cm (5' 6) 08/17/2024 2:08 PM MANUFACTURING MECHANIC Body Mass Index 30.13 08/17/2024 2:08 PM MANUFACTURING MECHANIC Plan of Treatment Not on file Procedures Procedure Name Priority Date/Time Associated Diagnosis Comments SCREENING MAMMOGRAM BILATERAL W CONG Schedule Routine, Read Routine (OP Routine) 04/20/2024 2:58 PM MANUFACTURING MECHANIC Screening mammogram, encounter for from Last 3 Months or Most Recently Relevant to Health Maintenance Results * Screening Mammogram Bilateral W Cong (04/20/2024 2:58 PM MANUFACTURING MECHANIC) Anatomical Region Laterality Modality Breast Bilateral Mammography Narrative 04/20/2024 3:26 PM MANUFACTURING MECHANIC Mammogram Technique: Bilateral Digital Breast Tomosynthesis, Bilateral C-view 2D Screening mammogram. Views obtained: bilateral craniocaudal and bilateral mediolateral oblique. Computer Aided Detection was performed. Mammogram Findings: The present examination has been compared to prior imaging studies performed at [facility] on 11/14/2020, 12/19/2021 and 04/03/2023. There are [...] compared to prior imaging studies performed at [facility] on 11/14/2020, 12/19/2021 and 04/03/2023. There are scattered areas of fibroglandular density. There is no suspicious abnormality in either breast. Impression: There is no mammographic evidence of malignancy. Annual screening mammography is recommended. OVERALL FINAL ASSESSMENT: BI-RADS CATEGORY 1: Negative. us Self Screening Mammogram IMG MAMMO PROCEDURES Fi nal Result from Last 3 Months or Most Recently Relevant to Health Maintenance Insurance [facility] ACCESS CHOICE ANTHEM ACCESS CHOICE ANTHEM ACCESS CHOICE Care Teams Volleyball Commentator Relationship Specialty Start Date End Date Manuela Gray MD PCP - General Family Medicine 02/21/23
--- OUTSIDE RECORDS SUMMARY | 2025-01-16 18:36 | XMS_ITS | Clinical Summary ---
Author Organization [facility] Address [address] [place] [address] Care Team Providers Care Staffing Clerk Name Role Phone Manuela Gray MD Primary Care Provider [phone] Allergies Active Allergy Reactions Criticality Noted Date [...] 11/27/2011 Surgical History Surgery Date Site/Laterality Comments [place] CHOLECYSTECTOMY Cholecystectomy - (Added by TW Conv) WRIST SURGERY Wrist Surgery - (Added by TW Conv) [place] TOTAL ABDOMINAL HYSTERECT W/WO RMVL TUBE OVARY [...] on file Legal Sex Female 9:07 PM WAX BALL KNOCK OUT WORKER Gender Identity Not on file Sexual Orientation Not on file Obstetrics History Last Filed Vital Signs Vital Sign Reading Time Taken Comments Blood Pressure 139/90 08/17/2024 2:08 PM WAX BALL KNOCK OUT WORKER Pulse 84 08/17/2024 2:08 PM WAX BALL KNOCK OUT WORKER Temperature 36 C (96.8 F) 08/17/2024 2:08 PM WAX BALL KNOCK OUT WORKER Respiratory Rate - - Oxygen Saturation 99% 08/17/2024 2:08 PM WAX BALL KNOCK OUT WORKER Inhaled Oxygen Concentration - - Weight 84.7 kg (186 lb 11.2 oz) 08/17/2024 2:08 PM WAX BALL KNOCK OUT WORKER Height 167.6 cm (5' 6) 08/17/2024 2:08 PM WAX BALL KNOCK OUT WORKER Body Mass Index 30.13 08/17/2024 2:08 PM WAX BALL KNOCK OUT WORKER Plan of Treatment Health Maintenance Due Date [...] Read Routine (OP Routine) 04/20/2024 2:58 PM WAX BALL KNOCK OUT WORKER Screening mammogram, encounter for from Last 3 Months or Most Recently Relevant to Health Maintenance Results * Screening Mammogram Bilateral W Cong (04/20/2024 2:58 PM WAX BALL KNOCK OUT WORKER) Anatomical Region Laterality Modality Breast Bilateral Mammography Narrative 04/20/2024 3:26 PM WAX BALL KNOCK OUT WORKER Mammogram Technique: Bilateral Digital Breast Tomosynthesis, Bilateral C-view 2D Screening mammogram. Views obtained: bilateral craniocaudal and bilateral mediolateral oblique. Computer Aided Detection was performed. Mammogram Findings: The present examination has been compared to prior imaging studies performed at [facility] on 11/14/2020, 12/19/2021 and 04/03/2023. There [...] compared to prior imaging studies performed at [facility] on 11/14/2020, 12/19/2021 and 04/03/2023. There [...] ACCESS CHOICE ANTHEM ACCESS CHOICE Care Teams Staffing Clerk Relationship Specialty Start Date End Date Manuela Gray MD PCP - General Family Medicine 02/21/23
--- OUTSIDE RECORDS SUMMARY | 2025-01-16 18:37 | XMS_ITS | Encounter Summary ---
Author Organization [facility] Address [address] [place] [address] Care Team Providers Care Pot Reliner Name Role Phone Manuela Gray MD Primary Care Provider [phone] Encounter Details Date Type Department Care Team (Latest Contact Info) Description 11/19/2001 Outpatient Historical [facility] Nito Aden MD [address] [place] [address] PAIN IN LIMB (Primary Dx) Social History Tobacco Use Types Packs/Day Years Used Date Smoking Tobacco: Never Assessed Comments Unknown Sex and Gender Information Value Date Recorded Sex Assigned at Not on file Legal Sex Female 2:54 AM PERSONAL INJURY SPECIALIST Gender Identity Not on file Sexual Orientation Not on file documented as of this encounter Plan of Treatment Not on file documented as of this encounter Visit Diagnoses Diagnosis Pain in limb- Primary documented in this encounter Care Teams Pot Reliner Relationship Specialty Start Date End Date Manuela Gray MD [address] [place] [id number] PCP - General Family Practice 09/03/22 documented as of this encounter
--- OUTSIDE RECORDS SUMMARY | 2025-01-16 18:37 | XMS_ITS | Encounter Summary ---
Author Organization [facility] Address [address] [place] [address] Care Team Providers Care Manager Human Capital Name Role Phone Manuela Gray MD Primary Care Provider [phone] Encounter Details Date Type Department Care Team (Latest Contact Info) Description 09/28/2001 Outpatient Historical [facility] [place] Giron, [place] [address] [address] [place] [address] CERVICALGIA (Primary Dx) Social History Tobacco Use Types Packs/Day Years Used Date Smoking Tobacco: Never Assessed Comments Unknown Sex and Gender Information Value Date Recorded Sex Assigned at Not on file Legal Sex Female 2:54 AM DIRECTOR VISUAL Gender Identity Not on file Sexual Orientation Not on file documented as of this encounter Plan of Treatment Not on file documented as of this encounter Visit Diagnoses Diagnosis Cervicalgia- Primary documented in this encounter Care Teams Manager Human Capital Relationship Specialty Start Date End Date Manuela Gray MD [address] [place] [id number] PCP - General Family Practice 09/03/22 documented as of this encounter
--- OUTSIDE RECORDS SUMMARY | 2025-01-16 18:37 | XMS_ITS | Clinical Summary ---
Author Organization [facility] Address [address] [place] [address] Phone Care Team Providers Care Scarf Gluer Name Role Phone Manuela Gray MD Primary Care Provider [phone] Social History Tobacco Use Types Packs/Day Years Used Date Smoking Tobacco: Never Assessed Comments Unknown Sex and Gender Information Value Date Recorded Sex Assigned at Not on file Legal Sex Female 2:54 AM INSIDE SALES LEAD Gender Identity Not on file Sexual Orientation [...] 2) 2015 INFLUENZA VACCINE (#1) 2025 Insurance [facility] BLUE ACCESS CHOICE Care Teams Scarf Gluer Relationship Specialty Start Date End Date Manuela Gray MD [address] [place] [address] PCP - General Family Practice 09/03/22
--- OUTSIDE RECORDS SUMMARY | 2025-01-16 18:37 | XMS_ITS | Encounter Summary ---
Author Organization [facility] Address [address] [place] [address] Care Team Providers Care Medical Records Auditor Name Role Phone Manuela Gray MD Primary Care Provider [phone] Encounter Details Date Type Department Care Team (Late st Contact Info) Description 10/05/2001 Outpatient Historical [facility] [place] [address] [place] [address] [place] [address] CERVICAL DISC DEGEN (Primary Dx) Social History Tobacco Use Types Packs/Day Years Used Date Smoking Tobacco: Never Assessed Comments Unknown Sex and Gender Information Value Date Recorded Sex Assigned at Not on file Legal Sex Female 2:54 AM LEGAL BILLER Gender Identity Not on file Sexual Orientation Not on file documented as of this encounter Plan of Treatment Not on file documented as of this encounter Visit Diagnoses Diagnosis Degeneration of cervical intervertebral disc- Primary documented in this encounter Care Teams Medical Records Auditor Relationship Specialty Start Date End Date Manuela Gray MD [address] [place] [id number] PCP - General Family Practice 09/03/22 documented as of this encounter
--- OUTSIDE RECORDS SUMMARY | 2025-01-16 18:37 | XMS_ITS | Encounter Summary ---
Author Organization [employer] Address [address] [place] [address] Care Team Providers Care Set Up Mechanic Coil Winding Machines Name Role Phone Manuela Gray MD Primary Care Provider [phone] Encounter Details Date Type Department Care Team (Late st Contact Info) Description 12/12/2001 Outpatient [facility] [address] [place] [address] [place] [address] [place] [address] [place] [address] Social History Tobacco Use Types Packs/Day Years Used Date Smoking Tobacco: Never Assessed Comments Unknown Sex and Gender Information Value Date Recorded Sex Assigned at Not on file Legal Sex Female 2:54 AM PRODUCTION TRAINER Gender Identity Not on file Sexual Orientation Not on file documented as of this encounter Plan of Treatment Not on file documented as of this encounter Visit Diagnoses Not on filedocumented in this encounter Care Teams Set Up Mechanic Coil Winding Machines Relationship Specialty Start Date End Date Manuela Gray MD [address] [place] [address] PCP - General Family Practice 09/03/22 documented as of this encounter
--- OUTSIDE RECORDS SUMMARY | 2025-01-16 18:37 | XMS_ITS | Encounter Summary ---
Author Organization [facility] Address [address] [place] [address] Care Team Providers Care Retail Greeting Card Merchandiser Name Role Phone Manuela Gray MD Primary Care Provider [phone] Encounter Details Date Type Department Care Team (Latest Contact Info) Description 11/10/2001 Outpatient [facility] [address] [place] [address] [place] [address] [place] [address] [place] [address] [place] [address] PAIN IN LIMB (Primary Dx) Social History Tobacco Use Types Packs/Day Years Used Date Smoking Tobacco: Never Assessed Comments Unknown Sex and Gender Information Value Date Recorded Sex Assigned at Not on file Legal Sex Female 2:54 AM CLAY TEMPERER Gender Identity Not on file Sexual Orientation Not on file documented as of this encounter Plan of Treatment Not on file documented as of this encounter Visit Diagnoses Diagnosis Pain in limb- Primary documented in this encounter Care Teams Retail Greeting Card Merchandiser Relationship Specialty Start Date End Date Manuela Gray MD [address] [place] [phone] PCP - General Family Practice 09/03/22 documented as of this encounter
--- OUTSIDE RECORDS SUMMARY | 2025-01-16 18:37 | XMS_ITS | Clinical Summary ---
Author Organization [facility] Address [address] [place] [address] Care Team Providers Care Wood Dowel Machine Operator Name Role Phone Neftaly Oden MD Primary Care Provider [phone] Source Comments [facility],non-owned Affiliates and Associated Physician Practices is amultiple site organization consisting of ambulatory clinics and hospital sitesin [place], [place], [place] and [place]. This disclosure is being madepursuant to the Care Everywhere program and may not contain all information available regarding this patient. Last updated 18.[facility] Allergies No known active allergies Medications * [...] PO Take by mouth once daily Active [place]-3 Fatty Acids (SB [place]-3 FISH OIL PO) [...] complete this topic Insurance WALLY Care Teams Wood Dowel Machine Operator Relationship Specialty Start Date End Date Neftaly Oden MD [address] [place] [address] PCP - General Family Medicine 02/14/16
[2025-01-16 18:56] LABS: Glucose Urine UA Trace (Negative); Leukocyte Esterase Ur 2+ LEU/UL (Negative); Nitrate Urine Positive (Negative); Specific Grav Ur 1.025 (1.010-1.020)
[2025-01-16 19:03] LABS: Add Urine Microscopic? YES; Appearance Urine Turbid (Clear)
[2025-01-16] MEDS: KETOROLAC (*BKC) 60 MG/2 ML VIAL IM (19:25)
[2025-01-16 19:28] LABS: Hematocrit 40.2 % (35.0-49.0); Hemoglobin 13.0 g/dL (12.0-15.0); Immature Granulocyte Percent A 0.2 % (0.0-0.0); Lymphocytes Absolute Auto 1.39 K/mm3 (1.10-4.50); Mean Corpuscular HGB Conc 32.3 g/dL (32-36); Mean Corpuscular Hemoglobin 31.5 pg (27.0-31.0); Mean Corpuscular Volume 97.3 fL (78.0-102.0); Nucleated Red Blood Cells Absolute Auto 0.00 K/mm3 (0.00-0.00); Nucleated Red Blood Cells Perc 0.0 % (0-0.0); Platelet Count Result 213 K/mm3 (150-420); Red Blood Count 4.13 M/mm3 (4.20-5.40); White Blood Count 8.7 K/mm3 (4.8-10.8)
[2025-01-16 19:39] LABS: Alanine Aminotransferase 37 U/L (6-35); Albumin Level 4.7 g/dL (3.5-5.1); Alkaline Phosphatase 98 U/L (38-126); Anion Gap 9 mmol/L (4-12); Aspartate Amino Transferase 59 U/L (14-36); Bilirubin,Total 0.7 mg/dL (0.2-1.3); Blood Urea Nitrogen 21 mg/dL (7-17); Calcium 9.2 mg/dL (8.4-10.2); Carbon Dioxide 25 mmol/L (22-30); Chloride 111 mmol/L (98-107); Estimated CRCL calculation 83 ml/min; Estimated Glomerular Filt Rate > 60; Glucose 83 mg/dL (65-110); INR 0.9; Osmolality Calculated 302 mOsm/kg (285-295); Partial Thromboplastin Time 25.7 Sec (23.9-30.70); Potassium 3.9 mmol/L (3.4-5.0); Prothrombin Time 10.5 Seconds (9.50-12.1); Sodium 145 mmol/L (137-145); Total Protein 7.5 g/dL (6.3-8.2)
[2025-01-16] MEDS: CIPROFLOXACIN 500 MG TAB PO (20:36)
[2025-01-16 20:40] VITALS: BP 126/85; PULSE 86; RESP 18; TEMP 37.2; O2SAT 97
--- NOTE | 2025-01-19 12:44 | PC.NURSE ---
urine culture, final no growth
== END 2025-01-16 20:40 | disposition home or self-care (01) ==
PROVIDERS: Emergency Provider Emergency Medicine; PCP Family Medicine
DX: N30.01 Acute cystitis with hematuria (principal); E03.9 Hypothyroidism, unspecified; E78.5 Hyperlipidemia, unspecified
CPT/HCPCS: 36415; 74176; 80053; 81001; 83605; 85025; 85610; 85730; 87086; 96372; 99284; A9270; J1885

== ENCOUNTER 2025-05-13 08:36 | Emergency (ER) | payer BC, SELFPAY ==
--- OUTSIDE RECORDS SUMMARY | 2024-10-13 00:21 | XMS_ITS ---
Author Organization [facility] Address [address] [place], [place] [id number] Care Team Providers Care [employer]ed [employer] Boards Beveler Name Role Phone NIKO NUNEZ MD Primary Care Provider UnavailYari Davison Unavailable [phone] REASON FOR VISIT Cancel Appointment Request Encounters Encounter Location Date Provider Diagnosis [facility] [address], [address] [place], [place] [id number] 10/13/2024 Yari Cheng PLAN OF TREATMENT Next Appt Details Provider Name:Amee Burden, 05/23/2025 08:10:00 AM, [address], [address], [place], [place], [id number],
--- OUTSIDE RECORDS SUMMARY | 2024-11-15 01:50 | XMS_ITS ---
Author Organization [facility] Address [address] [place], [place] [id number] Care Team Providers Care Front Desk Associate Name Role Phone NIKO NUNEZ MD Primary Care Provider Unavailaida e Yari Cheng Unavailable [phone] Amee Burden Unavailable [phone] ALLERGIES Allergen (clinical drug ingredient) Drug/Non Drug Allergy documented on EMR Reaction Allergy Type Onset Date Status Demerol HCl , hives Drug Allergy Activ e Versed (uncoded) Unknown Allergy Act kvng RESULTS Component Value Reference Range Notes AST (SGOT) Reviewed date:11/21/2024 09:38:26 PM Interpretation: Performing Lab:[facility] [place], [address] [place] [address], Phone - [phone], Director - Lashanda Notes/Report: AST (SGOT) 22 0-40 IU/L Creatinine, Serum Reviewed date:11/21/2024 09:38:26 PM Interpretation: Performing Lab:[facility] [place], [address] [place] [address], Phone - [phone], Director - Lashanda Notes/Report: Creatinine 0.68 0.57-1.00 mg/dL eGFR 100 >59 mL/min/1.73 ALT (SGPT) Reviewed date:11/21/2024 09:38:26 PM Interpretation: Performing Lab:[facility] [place], [address] [facility], Phone - [phone], Director - PhDSherie Notes/Report: ALT (SGPT) 16 0-32 IU/L Complement C4, Serum Reviewed date:11/21/2024 09:38:26 PM Interpretation: Performing Lab:[address], Phone - [phone], Director - [facility] Notes/Report: Complement C4, Serum 23 12-38 mg/dL CBC With Differential/Platel et Reviewed date:11/21/2024 09:38:26 PM Interpretation: Performing Lab:[address], Phone - [phone], Director - [facility] Notes/Report: WBC 4.1 3.4-10.8 x10E3/uL RBC 4.10 3.77-5.28 x10E6/uL Hemoglobin 12.9 11.1-15.9 g/dL Hematocrit 40.5 34.0-46.6 % MCV 99 79-97 fL MCH 31.5 26.6-33.0 pg MCHC 31.9 31.5-35.7 g/dL RDW 14.0 11.7-15.4 % Platelets 241 150-450 x10E3/uL Neutrophils 58 Not Estab. % Lymphs 29 Not Estab. % Monocytes 9 Not Estab. % Eos 3 Not Estab. % Basos 1 Not Estab. % Immature Cells Neutrophils (Absolute) 2.4 1.4-7.0 x10E3/uL Lymphs (Absolute) 1.2 0.7-3.1 x10E3/uL Monocytes(Absolute) 0.4 0.1-0.9 x10E3/uL Eos (Absolute) 0.1 0.0-0.4 x10E3/uL Baso (Absolute) 0.0 0.0-0.2 x10E3/uL Immature Granulocytes 0 Not Estab. % Immature Grans (Abs) 0.0 0.0-0.1 x10E3/uL NRBC Hematology Comments: Sed Rate - Westergren Reviewed date:11/21/2024 09:38:26 PM Interpretation: Performing Lab:[address], Phone - [phone], Director - [facility] Notes/Report: Sedimentation Rate-Westergren 4 0-40 mm/hr Complement C3, Serum Reviewed date:11/21/2024 09:38:26 PM Interpretation: [facility]forming [facility], [address] [facility], Phone - [phone], Director - Lashanda Notes/Report: Complement C3, Serum 140 82-167 mg/dL Urinalysis, Complete Reviewed date:11/21/2024 09:38:26 PM Interpretation: Performing [facility], [address] [facility], Phone - [phone], Director - Lashanda Notes/Report: Specific [place] 1.022 1.005-1.030 pH 7.0 5.0-7.5 Urine-Color Yellow Yellow Appearance Cloudy Clear WBC Esterase 2+ Negative Protein Negative Negative/Trace Glucose Negative Negative Ketones Negative Negative Occult Blood Negative Negative Bilirubin Negative Negative Urobilinogen,Semi-Qn 0.2 0.2-1.0 mg/dL Nitrite, Urine Negative Negative Microscopic Examination See below: Micr oscopic was indicated and was performed. Microscopic Examination WBC 11-30 0 - 5 /hpf RBC 0-2 0 - 2 /hpf Epithelial Cells (non renal) 0-10 0 - 10 /hpf Epithelial Cells (renal) Casts None seen None seen /lpf Cast Type Crystals Crystal Type Mucus Threads Bacteria None seen None seen/Few Yeast Trichomonas Comment MEDICATIONS Medication SIG (Take, Route, Frequency, Duration) Notes Start Date End Date Status amitriptyline 25 mg 1 tab(s) orally once a day (at bedtime) Active magnesium glycinate 200 mg 2 tab(s) oral ly once a day (after a meal) Active CeleBREX 100 mg 1 cap(s) orally 2 ti mes a day Active Tumeric orally Active pregabalin 150 mg 1 cap(s) orally 2 ti mes a day Active multivitamin Active Cymbalta 30 mg 1 cap(s) orally once a day Active azaTHIOprine 50 mg 1 tab(s) orally 2 TI MES A DAY Active Vitamin D3 250 mcg 1 cap(s) orally once a week Active Cranberry orally as directed A ctive Probiotics orally as directed Active levothyroxine 13 mcg (0.013 mg) 1 cap(s) orally once a day Active topiramate 25 mg 1 tab(s) orally 2 ti mes a day Active SUMAtriptan 100 mg 1 tab(s) orally once Active calcium caltrate w/vitamin D3 400/500 iu 4 tab(s) orally daily Active atorvastatin 20 mg 1 tab(s) orally once a day Active VITAL SIGNS BMI 30.02 kg/m2 11/15/2024 Blood pressure systolic 120 mm Hg 11/16/19 25 Blood pressure diastolic 81 mm Hg 025 Heart Rate 77 /min 11/15/2024 Height 66 in 11/15/2024 Weight 186 lbs 11/15/2024 Encounters Encounter Location Date Provider Diagnosis [facility], [address] [place], [place] [id number] 11/15/2024 Amee Hartig 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 GI following colitis and LFTs. Cont eye exams. Avoid sun exposure. Had a hysterectomy but no sx's of menapause yet- she wants to wait on DXA. Raynauds- keep warm. Seeing Neuro for paresthesia issues. Continue Duloxetine. Check labs. PCP follows TSH. Ask about a sleep study 11/15/2024 Primary generalized (osteo)arthritis (ICD-10 - M15.0) Continue AZA. GI following colitis and LFTs. Cont eye exams. Avoid sun exposure. Had a hysterectomy but no sx's of menapause yet- she wants to wait on DXA. Raynauds- keep warm. Seeing Neuro for paresthesia issues. Continue Duloxetine. Check labs. PCP follows TSH. Ask about a sleep study 11/15/2024 Other continuous churn buttermaker (current) drug therapy (ICD-10 - Z79.899) Continue AZA. GI following colitis and LFTs. Cont eye exams. Avoid sun exposure. Had a hysterectomy but no sx's of menapause yet- she wants to wait on DXA. Raynauds- keep warm. Seeing Neuro for paresthesia issues. Continue Duloxetine. Check labs. PCP follows TSH. Ask about a sleep study 11/15/2024 Toe pain, left (ICD-10 - M79.675) Continue AZA. GI following colitis and LFTs. Cont eye exams. Avoid sun exposure. Had a hysterectomy but no sx's of menapause yet- she wants to wait on DXA. Raynauds- keep warm. Seeing Neuro for paresthesia issues. Continue Duloxetine. Check labs. PCP follows TSH. Ask about a sleep study 11/15/2024 Hypercalcemia (ICD-10 - E83.52) Continue AZA. GI following colitis and LFTs. Cont eye exams. Avoid sun exposure. Had a hysterectomy but no sx's of menapause yet- she wants to wait on DXA. Raynauds- keep warm. Seeing Neuro for paresthesia issues. Continue Duloxetine. Check labs. PCP follows TSH. Ask about a sleep study 11/15/2024 Paresthesia (ICD-10 - R20.2) Continue AZA. GI following colitis and LFTs. Cont eye exams. Avoid sun exposure. Had a hysterectomy but no sx's of menapause yet- she wants to wait on DXA. Raynauds- keep warm. Seeing Neuro for paresthesia issues. Continue Duloxetine. Check labs. PCP follows TSH. Ask about a sleep study 11/15/2024 Radicular pain of both lower extremities (ICD-10 - M54.10) Continue AZA. GI following colitis and LFTs. Cont eye exams. Avoid sun exposure. Had a hysterectomy but no sx's of menapause yet- she wants to wait on DXA. Raynauds- keep warm. Seeing Neuro for paresthesia issues. Continue Duloxetine. Check labs. PCP follows TSH. Ask about a sleep study 11/15/2024 Elevated LFTs (ICD-10 - R79.89) Continue AZA. GI following colitis and LFTs. Cont eye exams. Avoid sun exposure. Had a hysterectomy but no sx's of menapause yet- she wants to wait on DXA. Raynauds- keep warm. Seeing Neuro for paresthesia issues. Continue Duloxetine. Check labs. PCP follows TSH. Ask about a sleep study PLAN OF TREATMENT Medication Medication Name Sig Start Date Stop Date Notes amitriptyline 25 mg 1 tab(s) orally once a day (at bedtime) magnesium glycinate 200 mg 2 tab(s) oral ly once a day (after a meal) CeleBREX 100 mg 1 cap(s) orally 2 ti mes a day Tumeric orally pregabalin 150 mg 1 cap(s) orally 2 ti mes a day multivitamin Cymbalta 30 mg 1 cap(s) orally once a day azaTHIOprine 50 mg 1 tab(s) orally 2 TI MES A DAY Vitamin D3 250 mcg 1 cap(s) orally once a week Cranberry orally as directed Probiotics orally as directed levothyroxine 13 mcg (0.013 mg) 1 cap(s) orally once a day topiramate 25 mg 1 tab(s) orally 2 ti mes a day SUMAtriptan 100 mg 1 tab(s) orally once calcium caltrate w/vitamin D3 400/500 iu 4 tab(s) orally daily atorvastatin 20 mg 1 tab(s) orally once a day Next Appt Details Follow Up: 3 Months Amee, Reason: Provider Name:Amee Burden, 05/23/2025 08:10:00 AM, [address] [facility], [address], [place], [place], [id number], Progress Notes * Examination Category Sub-Category Detail Notes Category Not es Rheumatology Cervical Spine normal range of motion Lumbar spine: normal forward and l ateral bending Thoracic Spine: normal Sacroiliac: normal Fibromyalgia Tender Points: 10/01 General Constitutional: NAD HEENT: PERRLA Cardiovascular RSR, no murmurs, No rub, trace edema LE's Lungs: clear to ausculation Abdomen: soft, no organomegal y or masses /Rectal: not done Skin: livedo, varicosities LE's Neurological: no focal signs, norm al strength Heme/Lymphatic: no cervical adenopat hy Psych: alert, oriented x 3 Joint Exam Shoulders Normal Elbows Normal Wrists Normal Hips Normal Knees Normal Ankles Normal All IPs Normal All MCPs Normal All PIPs Normal All DIPs Normal All MTPs Normal History and Physical Notes * HPI (History of Present Illness) Category Sub-Category Detail Notes Category Not es Rheumatology Alopecia She has been doing very well. She denies any flares. She did give up soda. Duloxetine has really helped her tingling pain. She has not had any neuropathy issues. No rash or recent infections. GI sx's stable. Raynauds quiet. Discoloration of fingers Dryness Fatigue Fevers Headaches History of miscarriage(s) Joint pain Joint stiffness Joint swelling Malar rash Morning stiffness Muscle ache/pain Oral sores Photosensitivity Rash Raynauds phenomena Muscle Weakness iritis / conjuctivitis Psoriasis dysphagia Back pain Digital ulcers family history of rheumatic disease Weight loss swollen glands infections pleurisy tendinitis Gout Physical Examination Category Sub-Category Detail Notes Section Note s MDHAQ Summary Function (0-10):: 1 Pain (0-10):: 2 Patient Global Assessment of Disease Activity (0 -10):: 3 RAPID3 Score (0-30):: 6 Physician Global Assessment of Disease Activity (0-10):: 3 Prognosis Very Good w/tx Erosive Damage No
--- OUTSIDE RECORDS SUMMARY | 2024-11-15 02:42 | XMS_ITS ---
Author Organization [facility] Address [address] [place], [place] [address] Care Team Providers Care Waste Management Engineer Name Role Phone NIKO NUNEZ MD Primary Care Provider Unavailaida e Yari Cheng Unavailable [phone] REASON FOR VISIT Reschedule Appointment Request Encounters Encounter Location Date Provider Diagnosis [facility] [address], [address] [place], [place] [phone] 11/15/2024 Yari Cheng PLAN OF TREATMENT Next Appt Details Provider Name:Amee Burden, 05/23/2025 08:10:00 AM, [address], [address], [place], [place], [phone],
--- OUTSIDE RECORDS SUMMARY | 2024-11-22 04:23 | XMS_ITS ---
Author Organization [facility] Address [address] [place], [place] [id number] Care Team Providers Care Emergency Medical Technician/Driver Name Role Phone NIKO NUNEZ MD Primary Care Provider UnavailYari Davison Unavailable [phone] REASON FOR VISIT celebrex Encounters Encounter Location Date Provider Diagnosis [facility] [address], [address] [place], [place] [id number] 11/22/2024 Yari Cheng PLAN OF TREATMENT Next Appt Details Provider Name:Amee Burden, 05/23/2025 08:10:00 AM, [address], [address], [place], [place], [id number],
--- OUTSIDE RECORDS SUMMARY | 2024-11-24 01:50 | XMS_ITS ---
Author Organization [facility] Address [address] [place], [place] [address] Care Team Providers Care Environmental Studies Program Director Name Role Phone NIKO NUNEZ MD Primary Care Provider Yari Pizarro Unavailable [phone] Amee Burden Unavailable [phone] REASON FOR VISIT 3 mo f/u Encounters Encounter Location Date Provider Diagnosis [facility] [address], [address] [place], [place] [id number] 11/24/2024 Amee Burden PLAN OF TREATMENT Next Appt Details Provider Name:Amee Burden, 05/23/2025 08:10:00 AM, [address], [address], [place], [place], [phone],
--- OUTSIDE RECORDS SUMMARY | 2025-02-15 02:10 | XMS_ITS ---
Author Organization [facility] Address [address] [place], [place] [id number] Care Team Providers Care Urban Gardening Specialist Name Role Phone NIKO NUNEZ MD Primary Care Provider Unavailaida e Yari Cheng Unavailable [phone] REASON FOR VISIT 3 mo f/u Encounters Encounter Location Date Provider Diagnosis [facility] [address], [address] [place], [place] [id number] 02/15/2025 Yari Cheng PLAN OF TREATMENT Next Appt Details Provider Name:Amee Burden, 05/23/2025 08:10:00 AM, [address], [address], [place], [place], [phone],
--- OUTSIDE RECORDS SUMMARY | 2025-02-21 02:00 | XMS_ITS ---
Author Organization [facility] Address [address] [place], [place] [id number] Care Team Providers Care Bag Repairer Name Role Phone NIKO NUNEZ MD Primary Care Provider Unavailaida e Yari Cheng Unavailable [phone] ALLERGIES Allergen (clinical drug ingredient) Drug/Non Drug Allergy documented on EMR Reaction Allergy Type Onset Date Status Demerol HCl , hives Drug Allergy Activ e Versed (uncoded) Unknown Allergy Act kvng RESULTS Component Value Reference Range Notes AST (SGOT) Reviewed date:02/23/2025 07:48:07 AM Interpretation: Performing Lab:[facility], [address] [place] [address], Phone - [phone], Director - PhDSherie Notes/Report: AST (SGOT) 49 0-40 IU/L Creatinine, Serum Reviewed date:02/23/2025 07:44:35 AM Interpretation: Performing Lab:[facility], [address] [place] [address], Phone - [phone], Director - PhDSherie Notes/Report: Creatinine 0.59 0.57-1.00 mg/dL eGFR 104 >59 mL/min/1.73 ALT (SGPT) Reviewed date:02/23/2025 07:46:23 AM Interpretation: Performing Lab:[facility] [address] [place] [address], Phone - [phone], Director - PhDSherie Notes/Report: ALT (SGPT) 49 0-32 IU/L CBC With Differential/Platel et Reviewed date:02/23/2025 07:28:53 AM Interpretation: Performing Lab:[facility], [address] [facility], Phone - [phone], Director - [facility] Notes/Report: WBC 3.8 3.4-10.8 x10E3/uL RBC 3.98 3.77-5.28 x10E6/uL Hemoglobin 12.6 11.1-15.9 g/dL Hematocrit 39.8 34.0-46.6 % MCV 100 79-97 fL MCH 31.7 26.6-33.0 pg MCHC 31.7 31.5-35.7 g/dL RDW 14.0 11.7-15.4 % Platelets 233 150-450 x10E3/uL Neutrophils 60 Not Estab. % Lymphs 28 Not Estab. % Monocytes 8 Not Estab. % Eos 2 Not Estab. % Basos 1 Not Estab. % Immature Cells Neutrophils (Absolute) 2.3 1.4-7.0 x10E3/uL Lymphs (Absolute) 1.1 0.7-3.1 x10E3/uL Monocytes(Absolute) 0.3 0.1-0.9 x10E3/uL Eos (Absolute) 0.1 0.0-0.4 x10E3/uL Baso (Absolute) 0.0 0.0-0.2 x10E3/uL Immature Granulocytes 0 Not Estab. % Immature Grans (Abs) 0.0 0.0-0.1 x10E3/uL NRBC Hematology Comments: SANDIP Panel (SANDIP+SURJIT+Scl 70+Sj Grace+SjoSSB) Reviewed date:02/23/2025 07:34:00 AM Interpretation: Performing Lab:[facility], [address] [facility], Phone - [phone], Director [facility] Notes/Report: SANDIP by IFA Rfx Titer/Pattern Negative Negative <1:80 Borderline 1:80 Positive >1:80 ICAP nomenclature: AC-0 For more information about Hep-2 cell patterns use ANApatterns.org, the official website for the International Consensus on Antinuclear Antibody (SANDIP) Patterns (ICAP). 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 Negative REASON FOR VISIT 3 mo f/u MEDICATIONS Medication SIG (Take, Route, Frequency, Duration) Notes Start Date End Date Status Tumeric orally Active CeleBREX 100 mg 1 cap(s) orally 2 ti mes a day Active Cymbalta 30 mg 1 cap(s) orally once a day Active magnesium glycinate 200 mg 2 tab(s) oral ly once a day (after a meal) Active multivitamin Active topiramate 25 mg 1 tab(s) orally 2 ti mes a day Active levothyroxine 13 mcg (0.013 mg) 1 cap(s) orally once a day Active Vitamin D3 250 mcg 1 cap(s) orally once a week Active SUMAtriptan 100 mg 1 tab(s) orally once Active Cranberry orally as directed A ctive Probiotics orally as directed Active atorvastatin 20 mg 1 tab(s) orally once a day Active CeleBREX 100 mg 1 cap(s) orally 2 ti mes a day for 30 days Active Cymbalta 30 mg 1 cap(s) orally once a day for 90 days Active azaTHIOprine 50 mg 1 tab(s) orally 2 TI MES A DAY for 90 days Active pregabalin 150 mg 1 cap(s) orally 2 ti mes a day Active azaTHIOprine 50 mg 1 tab(s) orally 2 TI MES A DAY Active vitamin E 180 mg 1 cap(s) orally once a day Active amitriptyline 25 mg 1 tab(s) orally once a day (at bedtime) Active VITAL SIGNS BMI 30.66 kg/m2 02/21/2025 Blood pressure systolic 145 mm Hg 02/22/20 25 Blood pressure diastolic 88 mm Hg 025 Heart Rate 80 /min 02/21/2025 Height 66 in 02/21/2025 Weight 190 lbs 02/21/2025 Encounters Encounter Location Date Provider Diagnosis [facility] 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 GI following colitis and LFTs. Off HCQ. Avoid sun exposure. Had a hysterectomy but no sx's of menopause yet- she wants to wait on DXA. Raynauds- keep warm. Seeing Neuro for paresthesia issues. Continue Duloxetine. Increase dose a bit. Check labs. PCP follows TSH. Ask about a sleep study 02/21/2025 Primary generalized (osteo)arthritis (ICD-10 - M15.0) CTD- Continue AZA. GI following colitis and LFTs. Off HCQ. Avoid sun exposure. Had a hysterectomy but no sx's of menopause yet- she wants to wait on DXA. Raynauds- keep warm. Seeing Neuro for paresthesia issues. Continue Duloxetine. Increase dose a bit. Check labs. PCP follows TSH. Ask about a sleep study 02/21/2025 Other exterminator termite (current) drug therapy (ICD-10 - Z79.899) CTD- Continue AZA. GI following colitis and LFTs. Off HCQ. Avoid sun exposure. Had a hysterectomy but no sx's of menopause yet- she wants to wait on DXA. Raynauds- keep warm. Seeing Neuro for paresthesia issues. Continue Duloxetine. Increase dose a bit. Check labs. PCP follows TSH. Ask about a sleep study 02/21/2025 Toe pain, left (ICD-10 - M79.675) CTD- Continue AZA. GI following colitis and LFTs. Off HCQ. Avoid sun exposure. Had a hysterectomy but no sx's of menopause yet- she wants to wait on DXA. Raynauds- keep warm. Seeing Neuro for paresthesia issues. Continue Duloxetine. Increase dose a bit. Check labs. PCP follows TSH. Ask about a sleep study 02/21/2025 Hypercalcemia (ICD-10 - E83.52) CTD- Continue AZA. GI following colitis and LFTs. Off HCQ. Avoid sun exposure. Had a hysterectomy but no sx's of menopause yet- she wants to wait on DXA. Raynauds- keep warm. Seeing Neuro for paresthesia issues. Continue Duloxetine. Increase dose a bit. Check labs. PCP follows TSH. Ask about a sleep study 02/21/2025 Paresthesia (ICD-10 - R20.2) CTD- Continue AZA. GI following colitis and LFTs. Off HCQ. Avoid sun exposure. Had a hysterectomy but no sx's of menopause yet- she wants to wait on DXA. Raynauds- keep warm. Seeing Neuro for paresthesia issues. Continue Duloxetine. Increase dose a bit. Check labs. PCP follows TSH. Ask about a sleep study 02/21/2025 Radicular pain of both lower extremities (ICD-10 - M54.10) CTD- Continue AZA. GI following colitis and LFTs. Off HCQ. Avoid sun exposure. Had a hysterectomy but no sx's of menopause yet- she wants to wait on DXA. Raynauds- keep warm. Seeing Neuro for paresthesia issues. Continue Duloxetine. Increase dose a bit. Check labs. PCP follows TSH. Ask about a sleep study 02/21/2025 Elevated LFTs (ICD-10 - R79.89) CTD- Continue AZA. GI following colitis and LFTs. Off HCQ. Avoid sun exposure. Had a hysterectomy but no sx's of menopause yet- she wants to wait on DXA. Raynauds- keep warm. Seeing Neuro for paresthesia issues. Continue Duloxetine. Increase dose a bit. Check labs. PCP follows TSH. Ask about a sleep study PLAN OF TREATMENT Medication Medication Name Sig Start Date Stop Date Notes Tumeric orally CeleBREX 100 mg 1 cap(s) orally 2 ti mes a day Cymbalta 30 mg 1 cap(s) orally once a day magnesium glycinate 200 mg 2 tab(s) oral ly once a day (after a meal) multivitamin topiramate 25 mg 1 tab(s) orally 2 ti mes a day levothyroxine 13 mcg (0.013 mg) 1 cap(s) orally once a day Vitamin D3 250 mcg 1 cap(s) orally once a week SUMAtriptan 100 mg 1 tab(s) orally once Cranberry orally as directed Probiotics orally as directed atorvastatin 20 mg 1 tab(s) orally once a day pregabalin 150 mg 1 cap(s) orally 2 ti mes a day azaTHIOprine 50 mg 1 tab(s) orally 2 TI MES A DAY amitriptyline 25 mg 1 tab(s) orally once a day (at bedtime) Next Appt Details Follow Up: 3 Months Amee, Reason: Provider Name:Amee Burden, 05/23/2025 08:10:00 AM, [address], [address], [place], [place], [phone], Progress Notes * Examination Category Sub-Category Detail [...] Detail Notes Category Not es Rheumatology Alopecia Doing ok- a few minor flares and she still has alot of achy pain. Son got . No rash or recent infections. GI sx's stable. Raynauds quiet. Still fatigued- thyroid meds being adjusted per PCP Discoloration of fingers Dryness Fatigue Fevers Headaches [...] Section Note s MDHAQ Summary Function (0-10):: 1.0 Pain (0-10):: 3 Patient Global Assessment of Disease Activity (0 -10):: 6 RAPID3 Score (0-30):: 10.0 Physician Global Assessment of Disease Activity (0-10):: 2 Prognosis Very Good w/tx Erosive Damage No
--- OUTSIDE RECORDS SUMMARY | 2025-02-21 02:28 | XMS_ITS ---
Author Organization [facility] Address [address] [place], [place] [phone] Care Team Providers Care Customer Acquisition Manager Name Role Phone NIKO NUNEZ MD Primary Care Provider Yari Pizarro Unavailable [phone] MEDICATIONS Medication SIG (Take, Route, Fr equency, Duration) Notes Start Date End Date Status Cymbalta 60 mg 1 cap(s) orally once a day for 30 days Active Encounters Encounter Location Date Provider Diagnosis [facility] [address], [address] [place], [place] [phone] 02/21/2025 Yari Cheng Primary generalized (osteo)arthritis M15.0 ASSESSMENTS Encounter Date Diagnosis Assessment Notes Treatment Notes Treatment Clinical Notes Section Notes 02/21/2025 Primary generalized (osteo)arthritis (ICD-10 - M15.0) PLAN OF TREATMENT Medication Medication Name Sig Start Date Stop Date Notes Cymbalta 60 mg 1 cap(s) orally once a day for 30 days Next Appt Details Provider Name:Amee Burden, 05/23/2025 08:10:00 AM, [address] [facility] [address], [address], [place], [place], [phone],
--- OUTSIDE RECORDS SUMMARY | 2025-02-23 01:46 | XMS_ITS ---
Author Organization [facility] Address [address] [place], [place] [phone] Care Team Providers Care Retention Representative Name Role Phone NIKO NUNEZ MD Primary Care Provider Yari Pizarro Unavailable [phone] Encounters Encounter Location Date Provider Diagnosis [facility] [address] [facility] [address] [place], [place] [phone] 02/23/2025 Yari Cheng PLAN OF TREATMENT Next Appt Details Provider Name:Amee Burden, 05/23/2025 08:10:00 AM, [address] [facility], [address], [place], [place], [phone],
--- OUTSIDE RECORDS SUMMARY | 2025-04-13 03:40 | XMS_ITS ---
Author Organization [facility] Address [address] [place], [place] [phone] Care Team Providers Care Repairer Handtools Name Role Phone NIKO NUNEZ MD Primary Care Provider UnavailYari Davison Unavailable [phone] REASON FOR VISIT refill MEDICATIONS Medication SIG (Take, Route, Fr equency, Duration) Notes Start Date End Date Status CeleBREX 100 mg 1 cap(s) orally 2 ti mes a day for 90 days Active Encounters Encounter Location Date Provider Diagnosis [facility] [address], [address] [place], [place] [phone] 04/13/2025 Yari Cheng PLAN OF TREATMENT Medication Medication Name Sig Start Date Stop Date Notes CeleBREX 100 mg 1 cap(s) orally 2 times a day for 90 days Next Appt Details Provider Name:Amee Burden, 05/23/2025 08:10:00 AM, [address], [place], [place], [phone],
--- OUTSIDE RECORDS SUMMARY | 2025-05-13 08:38 | XMS_ITS | Clinical Summary ---
Author Organization [facility] Address [address] [place] [address] Care Team Providers Care Tool Trouble Shooter Name Role Phone Manuela Gray MD Primary Care Provider [phone] Allergies Active Allergy Reactions Criticality Noted Date Comments Cefazolin Unknown Reaction: Unknown, Meperidine Hives High Reaction: Hives, Midazolam Hives High Reaction: Hives, Medications azaTHIOprine (IMURAN) 50 mg tablet azathioprine 50 mg tablet Active multivitamin tablet daily Active SUMAtriptan (IMITREX) 100 mg tablet TK 1 T PO AOS OF MIGRAINE. MAY REPEAT AFTER 2 H IF VILLAFANA RETURNS. NTE 200 MG IN 24 H 0 Active topiramate (TOPAMAX) 25 mg tablet topiramate 25 mg tablet TK 1 T PO BID Active CeleBREX 100 mg capsule every 12 hours [address] (CYMBALTA) 30 mg capsule Take 1 capsule (30 mg total) by mouth daily 4 Active levothyroxine sodium (TIROSINT) 13 mcg capsule Take 1 capsule (13 mcg total) by mouth daily 5 Active atorvastatin (LIPITOR) 20 mg tablet Take 1 tablet (20 mg total) by mouth daily 5 Active pregabalin (LYRICA) 150 mg capsule TAKE 1 CAPSULE(150 MG) BY MOUTH THREE TIMES DAILY 90 capsule 3 5 Active amitriptyline (ELAVIL) 25 mg tablet Take 1 tablet (25 mg total) by mouth nightly 90 tablet 2 5 Active camphor-methyl salicyl-mentho L 4-30-10 % cream Apply 1 Application topically 4 (four) times a day as needed (pain) 5 g 3 5 05/09/20 Active Problems Problem Noted Date Diagnosed Date Small fiber neuropathy 12/27/2022 Abnormal findings on diagnostic imaging of breas t 07/12/2019 Abnormal liver function tests 01/02/2015 Systemic lupus erythematosus 01/02/2015 Diarrhea 01/02/2015 Right upper quadrant abdominal pain 01/02/2015 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 Arthralgia of wrist 11/27/2011 Encounters Date Type Department Care Team Description 05/02/2025 7:06 AM BRASS INSTRUMENT REPAIR TECHNICIAN - 05/02/2025 11:59 PM BRASS INSTRUMENT REPAIR TECHNICIAN Hospital Encounter [facility] ([facility]) [address] [place] [id number] Breast lump in female Discharge Disposition: Discharge to home or self care 05/02/2025 7:06 AM BRASS INSTRUMENT REPAIR TECHNICIAN - 05/02/2025 11:59 PM BRASS INSTRUMENT REPAIR TECHNICIAN Hospital Encounter [facility] ([facility]) [address] [place] [id number] Breast lump in female Discharge Disposition: Discharge to home or self care 03/10/2025 3:00 PM CDT Office Visit [facility] [address] [address] Noman Spencer II, MD Small fiber neuropathy (Primary Dx) from Last 3 Months Surgical History Surgery Date Site/Laterality Comments [place] CHOLECYSTECTOMY Cholecystectomy - (Added by TW Conv) WRIST SURGERY Wrist Surgery - (Added by TW Conv) [place] TOTAL ABDOMINAL HYSTERECT W/WO RMVL TUBE OVARY Hysterectomy - (Added by TW Conv) HYSTERECTOMY Age 38 BREAST EXCISIONAL BIOPSY 06/16/2001 - 06/15/2002 Bilateral Benign BREAST CYST ASPIRATION 06/16/2019 - 06/15/2020 Left Benign Medical History Medical History Date Comments Dislocation [...] Clostridium difficile coliti s - (Added by Conv) Headache Lupus Arthritis Family History Medical History Relation Name Comments Hyperlipidemia Brother 1 Hypertension Brother 1 Family history of essential hypertension - (Added by TW Conv) Colon cancer Brother 2 Hyperlipidemia Brother 2 Family histor y of hyperlipidemia - (Added by Conv) Hyperlipidemia Brother 3 Nephrolithiasis Brother 3 Family histo ry of kidney stones - (Added by TW Conv) Heart disease Father Family history of cardiac disorder - (Added by TW Conv)/Family history of cardiac disorder - (Added by TW Conv) Hyperlipidemia Father Family histor y of hyperlipidemia - (Added by Conv)/High cholesterol - (Added by Conv) Hypertension Father Family history of essential hypertension - (Added by Conv)/Family history of hypertension - (Added by Conv) Throat cancer Maternal Grandfather Arthritis Mother Family history of arthritis - (Added by Conv) Heart disease Mother Family history of cardiac disorder - (Added by Conv) Hyperlipidemia Mother Family histor y of hyperlipidemia - (Added by TW Conv)/High cholesterol - (Added by TW Conv) Hypertension Mother Family history of essential hypertension - (Added by TW Conv)/Family history of hypertension - (Added by TW Conv) Uterine cancer Mother Colon cancer Sister Breast cancer Neg Hx Ovarian cancer Neg Hx Pancreatic cancer Neg Hx Prostate cancer Neg Hx Relation Name Status Comments Brother 1 Brother 2 Brother 3 Father Maternal Grandfather Maternal Grandmother Mother Sister Social History Tobacco Use Types Packs/Day Years Used Date Smoking Tobacco: Never Tobacco Cessation:Counseling Given: Not Answered Comments No Sex and Gender Information Value Date Recorded Sex Assigned at Not on file Legal Sex Female 9:07 PM BRASS INSTRUMENT REPAIR TECHNICIAN Gender Identity Not on file Sexual Orientation Not on file Obstetrics History Para Term AB IAB SAB Ectopic Multiple Livin g Live Births 2 2 Date Outcome GA Total Labor Labor/2nd/3rd Weight Sex Type Anes PTL Nora A1 A5 Name Clin Last Filed Vital Signs Vital Sign Reading Time Taken Comments Blood Pressure 122/80 03/10/2025 2:44 PM CDT Pulse 86 03/10/2025 2:44 PM CDT Temperature 36 C (96.8 F) 08/17/2024 2:08 PM BRASS INSTRUMENT REPAIR TECHNICIAN Respiratory Rate - - Oxygen Saturation 96% 03/10/2025 2:44 PM CDT Inhaled Oxygen Concentration - - Weight 81.6 kg (180 lb) 05/02/2025 8:13 AM BRASS INSTRUMENT REPAIR TECHNICIAN Height 167.6 cm (5' 6) 05/02/2025 8:13 AM BRASS INSTRUMENT REPAIR TECHNICIAN Body Mass Index 29.05 05/02/2025 8:13 AM BRASS INSTRUMENT REPAIR TECHNICIAN Plan of Treatment Health Maintenance Due Date Last Done Comments Colon Cancer Screening-Colonoscopy 1965 Depression Screening 1965 Hepatitis C Screening 1965 Hepatitis B Screening 1983 Regular Well Visit/Exam 18-64 1983 Pneumococcal vaccine <65 (1 of 2 - PCV) 1984 Zoster Vaccine (1 of 2) 05/11/2023 03/16/2023 Influenza Vaccine (#1) 2025 , 03/30/2022, 03/06/2020 Breast Cancer Screening-Mammogram 05/02/2026 05/02/2025, 04/20/2024, 04/03/2023, Additional history exists DTaP/Tdap/Td Vaccine (3 - Td or Tdap) 08/31/2028 08/31/2018, 09/15/2015, 04/01/2005 Procedures Procedure Name Priority Date/Time Associated Diagnosis Comments DIAGNOSTIC MAMMOGRAM BILATERAL W CONG Schedule Routine, Read Routine (OP Routine) 05/02/2025 8:23 AM BRASS INSTRUMENT REPAIR TECHNICIAN Breast lump in female US BREAST LEFT LIMITED Schedule Routine, Read Routine (OP Routine) 05/02/2025 8:23 AM BRASS INSTRUMENT REPAIR TECHNICIAN Breast lump in female from Last 3 Months Results * Diagnostic Mammogram Bilateral W Cong (05/02/2025 8:23 AM BRASS INSTRUMENT REPAIR TECHNICIAN) Anatomical Region Laterality Modality Breast Bilateral Mammography 05/02/2025 8:37 AM BRASS INSTRUMENT REPAIR TECHNICIAN Impressions 05/02/2025 9:35 AM BRASS INSTRUMENT REPAIR TECHNICIAN 1. No mammographic or sonographic abnormality identified in the area of palpable concern. 2. No evidence of malignancy in either breast. OVERALL FINAL ASSESSMENT: BI-RADS Category 2: Benign. RECOMMENDATION: 1. Annual screening mammography is recommended. 2. Clinical follow-up is recommended. Appropriate clinical management is recommended. Negative imaging does not negate the need of a biopsy if high clinical suspicion exists, and a biopsy under palpation may be performed. Dr. Lawrence discussed the above findings and recommendations with the patient, who expressed her understanding of the management plan. Dictated by: Pedro Lawrence MD The radiology attending physician has personally reviewed this study, and had reviewed and/or edited this written report and agrees with it. Electronically signed by: Leti Kennedy M.D. Narrative 05/02/2025 9:35 AM BRASS INSTRUMENT REPAIR TECHNICIAN EXAMINATION: BILATERAL DIGITAL DIAGNOSTIC MAMMOGRAM INCLUDING CAD AND BILATERAL DIGITAL BREAST TOMOSYNTHESIS; LEFT BREAST SONOGRAM HISTORY: 60-year-old woman with reported history of benign excisional biopsies bilaterally presents for annual mammography as well as new palpable abnormality in the left breast has been present since 01/2025. COMPARISON: Multiple prior mammograms dating back to 11/10/2020 TECHNIQUE: Full field digital mammographic views of BOTH breasts were performed, including computer aided detection (CAD) and BILATERAL digital breast tomosynthesis (DBT). Directed ultrasound evaluation of the LEFT breast was performed. BREAST PARENCHYMAL COMPOSITION: There are scattered areas of fibroglandular density. MAMMOGRAM FINDINGS: Triangular skin marker is in place over the palpable area concern in the upper outer right breast. No mammographic abnormality identified in the area of palpable concern. No mass, calcification, or architectural distortion suggestive of malignancy identified in either breast. SONOGRAM FINDINGS: Targeted sonographic evaluation of the left breast at the area of palpable concern at 3:00, 8 cm from the nipple did not demonstrate any solid or cystic mass. Asael Clement MD IMG MAMMO PROCEDURES Final Result * US Breast Left Limited (05/02/2025 8:23 AM BRASS INSTRUMENT REPAIR TECHNICIAN) Anatomical Region Laterality Modality Breast Left Ultrasound 05/02/2025 8:37 AM BRASS INSTRUMENT REPAIR TECHNICIAN Impressions 05/02/2025 9:35 AM BRASS INSTRUMENT REPAIR TECHNICIAN 1. No mammographic or sonographic abnormality identified in the area of palpable concern. 2. No evidence of malignancy in either breast. OVERALL FINAL ASSESSMENT: BI-RADS Category 2: Benign. RECOMMENDATION: 1. Annual screening mammography is recommended. 2. Clinical follow-up is recommended. Appropriate clinical management is recommended. Negative imaging does not negate the need of a biopsy if high clinical suspicion exists, and a biopsy under palpation may be performed. Dr. Lawrence discussed the above findings and recommendations with the patient, who expressed her understanding of the management plan. Dictated by: Pedro Lawrence MD The radiology attending physician has personally reviewed this study, and had reviewed and/or edited this written report and agrees with it. Electronically signed by: Leti Kennedy M.D. Narrative 05/02/2025 9:35 AM BRASS INSTRUMENT REPAIR TECHNICIAN EXAMINATION: BILATERAL DIGITAL DIAGNOSTIC MAMMOGRAM INCLUDING CAD AND BILATERAL DIGITAL BREAST TOMOSYNTHESIS; LEFT BREAST SONOGRAM HISTORY: 60-year-old woman with reported history of benign excisional biopsies bilaterally presents for annual mammography as well as new palpable abnormality in the left breast has been present since 01/2025. COMPARISON: Multiple prior mammograms dating back to 11/10/2020 TECHNIQUE: Full field digital mammographic views of BOTH breasts were performed, including computer aided detection (CAD) and BILATERAL digital breast tomosynthesis (DBT). Directed ultrasound evaluation of the LEFT breast was performed. BREAST PARENCHYMAL COMPOSITION: There are scattered areas of fibroglandular density. MAMMOGRAM FINDINGS: Triangular skin marker is in place over the palpable area concern in the upper outer right breast. No mammographic abnormality identified in the area of palpable concern. No mass, calcification, or architectural distortion suggestive of malignancy identified in either breast. SONOGRAM FINDINGS: Targeted sonographic evaluation of the left breast at the area of palpable concern at 3:00, 8 cm from the nipple did not demonstrate any solid or cystic mass. Asael Clement MD IMG MAMMO PROCEDURES Final Result from Last 3 Months Insurance [facility] ACCESS CHOICE ANTHEM ACCESS CHOICE [employer] ACCESS CHOICE Care Teams Tool Trouble Shooter Relationship Specialty Start Date End Date Manuela Gray MD PCP - General Family Medicine 02/21/23
--- OUTSIDE RECORDS SUMMARY | 2025-05-13 08:38 | XMS_ITS | Clinical Summary ---
Author Organization [facility] Address [address] [place] [place] [address] Care Team Providers Care Vulnerability Assessment Analyst Name Role Phone Neftaly Oden MD Primary Care Provider [phone] Source Comments [facility],non-owned Affiliates and Associated Physician Practices is amultiple site organization consisting of ambulatory clinics and hospital sitesin [place], [place], [place] and [place]. This disclosure is being madepursuant to the Care Everywhere program and may not contain all information available regarding this patient. Last updated 18.[facility] Allergies No known active allergies Medications * [...] PO Take by mouth once daily Active Summit-3 Fatty Acids (SB OMEGA-3 FISH OIL PO) [...] 03/18/1983 DTAP/TDAP/TD VACCINES (1 - Tdap) 1984 PAP SMEAR 1986 Cervical Cancer Screening 1995 PAP with HPV 1995 PNEUMOCOCCAL VACCINE 50+ (1 of 1 - PCV) 2015 ZOSTER VACCINE (1 of 2) 2015 DEPRESSION SCREENING 06/16/2024 COVID-19 VACCINE ( - 2024-2 6 season) 2025 INFLUENZA VACCINE (#1) 2025 Respiratory Syncytial Virus (RSV) Vaccine Pt: or over 60 yrs (1 - 1-dose 75+ series) 2040 HEPATITIS B VACCINE Aged Out No longe r eligible based on patient's age to complete this topic HIB VACCINE Aged Out No longer eligi [...] complete this topic Insurance [employer] Care Teams Vulnerability Assessment Analyst Relationship Specialty Start Date End Date Neftaly Oden MD [address] [place] [address] PCP - General Family Medicine 02/14/16
--- OUTSIDE RECORDS SUMMARY | 2025-05-13 08:39 | XMS_ITS | Encounter Summary ---
Author Organization [facility] Address [address] [place] [address] Care Team Providers Care Dental Amalgam Processor Name Role Phone Manuela Gray MD Primary Care Provider [phone] Encounter Details Date Type Department Care Team (Latest Contact Info) Description 11/10/2001 Outpatient [facility] [address] [facility] [place] [address] [place] [address] [place] [address] PAIN IN LIMB (Primary Dx) Social History Tobacco Use Types Packs/Day Years Used Date Smoking Tobacco: Never Assessed Comments Unknown Sex and Gender Information Value Date Recorded Sex Assigned at Not on file Legal Sex Female 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
--- OUTSIDE RECORDS SUMMARY | 2025-05-13 08:39 | XMS_ITS | Encounter Summary ---
Author Organization [facility] Address [address] [place] [address] Care Team Providers Care Weight And Balance Control Agent Name Role Phone Manuela Gray MD Primary Care Provider [phone] Encounter Details Date Type Department Care Team (Late st Contact Info) Description 12/12/2001 Outpatient [facility] [employer] [facility] [address] [facility] [place] [address] [place] [address] [place] [address] [address] [place] [address] [place] [address] Social History Tobacco Use Types Packs/Day Years Used Date Smoking Tobacco: Never Assessed Comments Unknown Sex and Gender Information Value Date Recorded Sex Assigned at Not on file 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
--- OUTSIDE RECORDS SUMMARY | 2025-05-13 08:39 | XMS_ITS | Patient Health Record ---
Author Organization [facility] Address [address] [facility] [address] [place], [place] [id number] Care Team Providers Care Pottery Machine Operator Name Role Phone NIKO NUNEZ MD Primary Care Provider Unavailaida e Yari Cheng Unavailable [phone] Amee Burden Unavailable [phone] ALLERGIES Allergen (clinical drug ingredient) Drug/Non Drug Allergy documented on EMR Reaction Allergy Type Onset Date Status Demerol HCl , hives Drug Allergy Activ e Versed (uncoded) Unknown Allergy Act kvng RESULTS Component Value Reference Range Notes SED RATE BY SUSAN BARR Reviewed date:05/21/2024 02:01:14 PM Interpretation: Performing Lab:[facility] [id number] Artie [id number] Christian Cuello MD Notes/Report: NON-FASTING; NON-FASTING; NON-FASTING FASTING:YES FASTING: YES SED RATE BY SUSAN HONG 2 < OR = 30 mm/h C-REACTIVE PROTEIN Reviewed date:05/21/2024 02:01:14 PM Interpretation: Performing Lab:[facility] [id number] Artie [id number] Christian Cuello MD Notes/Report: NON-FASTING; NON-FASTING; NON-FASTING FASTING:YES FASTING: YES C-REACTIVE PROTEIN <3.0 <8.0 mg/L URIC ACID Reviewed date:05/21/2024 02:01:14 PM Interpretation: Performing Lab:[facility] [id number] [address], [id number] Christian Cuello MD Notes/Report: NON-FASTING; NON-FASTING; NON-FASTING FASTING:YES FASTING: YES URIC ACID 2.7 2.5-7.0 mg/dL Therapeutic ta rget for gout patients: <6.0 mg/dL PTH, INTACT AND CALCIUM Reviewed date:05/21/2024 02:01:14 PM Interpretation: Performing Lab:[facility] [id number] [address], [id number] Christian Cuello MD Notes/Report: NON-FASTING; NON-FASTING FASTING:YES [...] (SGOT) Reviewed date:08/25/2024 06:57:07 AM Interpretation: Performing Lab:[facility] [address], Phone - [phone], [facility] Notes/Report: AST (SGOT) 27 0-40 IU/L Creatinine, Serum Reviewed date:08/25/2024 06:58:53 AM Interpretation: Performing Lab:[employer] [address], Phone - [phone], Director - [facility] Notes/Report: Creatinine 0.69 0.57-1.00 mg/dL eGFR 100 >59 mL/min/1.73 ALT (SGPT) Reviewed date:08/25/2024 06:57:12 AM Interpretation: Performing Lab:[employer] [place], [address] [place] [address], Phone - [phone], Director - [facility] Notes/Report: ALT (SGPT) 22 0-32 IU/L CBC With Differential/Platel et Reviewed date:08/25/2024 07:02:15 AM Interpretation: Performing Lab:[facility] [address] [place] [address], Phone - [phone], [facility] Notes/Report: WBC 5.0 3.4-10.8 x10E3/uL RBC 4.05 [...] (SGOT) Reviewed date:11/21/2024 09:38:26 PM Interpretation: Performing Lab:[facility] [place] [address] [place] [address], Phone - [phone], [facility] Notes/Report: AST (SGOT) 22 0-40 IU/L Creatinine, Serum Reviewed date:11/21/2024 09:38:26 PM Interpretation: Performing Lab:[employer] [employer] [address], Phone - [phone], Director - [facility] Notes/Report: Creatinine 0.68 0.57-1.00 mg/dL eGFR 100 >59 mL/min/1.73 ALT (SGPT) Reviewed date:11/21/2024 09:38:26 PM Interpretation: Performing Lab:[facility], Phone - [phone], Director - [facility] Notes/Report: ALT (SGPT) 16 0-32 IU/L Complement C4, Serum Reviewed date:11/21/2024 09:38:26 PM Interpretation: Performing Lab:[address], Phone - [phone], Director - [facility] Notes/Report: Complement C4, Serum 23 12-38 mg/dL CBC With Differential/Platel et Reviewed date:11/21/2024 09:38:26 PM Interpretation: Performing Lab:[address], Phone - [phone], Director - [facility] Notes/Report: WBC 4.1 3.4-10.8 x10E3/uL RBC 4.10 [...] (Abs) 0.0 0.0-0.1 x10E3/uL NRBC Hematology Comments: Itz Hong Reviewed date:11/21/2024 09:38:26 PM Interpretation: Performing Lab:[address], Phone - [phone], Director - [facility] Notes/Report: Sedimentation Rate-Westergren 4 0-40 mm/hr Complement C3, Serum Reviewed date:11/21/2024 09:38:26 PM Interpretation: Performing Lab:[address], Phone - [phone], Director - [facility] Notes/Report: Complement C3, Serum 140 82-167 mg/dL Urinalysis, Complete Reviewed date:11/21/2024 09:38:26 PM Interpretation: Performing Lab:[address], Phone - [phone], Director - [facility] Notes/Report: Specific [place] 1.022 1.005-1.030 pH 7.0 5.0-7.5 Urine-Color Yellow [...] None seen None seen/Few Yeast Trichomonas Comment AST (SGOT) Reviewed date:02/23/2025 07:48:07 AM Interpretation: Performing Lab:[address], Phone - [phone], Director - [facility] Notes/Report: AST (SGOT) 49 0-40 IU/L Creatinine, Serum Reviewed date:02/23/2025 07:44:35 AM Interpretation: Performing Lab:[address], Phone - [phone], Director - [facility] Notes/Report: Creatinine 0.59 0.57-1.00 mg/dL eGFR 104 >59 mL/min/1.73 ALT (SGPT) Reviewed date:02/23/2025 07:46:23 AM Interpretation: Performing Lab:[address], Phone - [phone], Director - [facility] Notes/Report: ALT (SGPT) 49 0-32 IU/L CBC With Differential/Platel et Reviewed date:02/23/2025 07:28:53 AM Interpretation: Performing Lab:[facility] [place], [address] [facility], Phone - [phone], Director - [facility] Notes/Report: WBC 3.8 3.4-10.8 x10E3/uL RBC 3.98 [...] Grace+SjoSSB) Reviewed date:02/23/2025 07:34:00 AM Interpretation: Performing Lab[facility] [address] [facility], Phone - [phone], Director - [facility] Notes/Report: SANDIP by IFA Rfx Titer/Pattern Negative Negative <1:80 Borderline 1:80 Positive >1:80 ICAP nomenclature: AC-0 For more information about Hep-2 cell patterns use ANApatterns.org, the official website for the International Consensus on Antinuclear Antibody (SANDIP) Patterns (ICAP). STAINED GLASS INSTALLER Antibodies 0.5 0.0-0.9 AI Mccarthy Antibodies <0.2 0.0-0.9 AI Antiscleroderma-70 Antibodies 1.5 0.0-0.9 AI Sjogren's Anti-SS-A 0.2 0.0-0.9 AI Sjogren's Anti-SS-B <0.2 0.0-0.9 AI DS DNA-CRITHIDIA IFA W/REFLE X TO TITER-[facility] Reviewed date:02/23/2025 07:34:05 AM Interpretation: Performing Lab:[facility] [place], [address] [facility], [place], Phone - [phone], Director - [place] Notes/Report: dsDNA Crithidia luciliae IFA Negative Negative REASON FOR REFERRAL No Information MEDICATIONS Medication SIG (Take, Route, Frequency, Duration) Notes Start Date End Date Status Probiotics orally as directed Active Tumeric orally Active atorvastatin 20 mg 1 tab(s) orally once a day Active topiramate 25 mg 1 tab(s) orally 2 ti mes a day Active levothyroxine 13 mcg (0.013 mg) 1 cap(s) orally once a day Active magnesium glycinate 200 mg 2 tab(s) oral ly once a day (after a meal) Active Vitamin D3 250 mcg 1 cap(s) orally once a week Active SUMAtriptan 100 mg 1 tab(s) orally once Active Cymbalta 60 mg 1 cap(s) orally once a day for 30 days Active vitamin E 180 mg 1 cap(s) orally once a day Active CeleBREX 100 mg 1 cap(s) orally 2 ti mes a day for 90 days Active Cranberry orally as directed A ctive pregabalin 150 mg 1 cap(s) orally 2 ti mes a day Active azaTHIOprine 50 mg 1 tab(s) orally 2 TI MES A DAY Active amitriptyline 25 mg 1 tab(s) orally once a day (at bedtime) Active Cymbalta 30 mg 1 cap(s) orally once a day for 90 days Active multivitamin Active azaTHIOprine 50 mg 1 tab(s) orally 2 TI MES A DAY for 90 days Active PROBLEMS Problem Type ICD Code Onset Dates Problem Status W/U Status Risk SNOMED Code Notes Problem 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 (Z79.899) Active confirmed 710454618 Problem Vitamin D deficiency (E55.9) Active confirmed 78684029 Problem Pain in right knee (M25.561) Active confirmed 92046310 Problem Connective tissue disease (M35.9) Active confirmed 398623949 Problem Hypercalcemia (E83.52) Active confirmed 64965777 Problem Elevated LFTs (R79.89) Active confirmed 509108334 Problem Primary generalized (osteo)arthritis (M15.0) Active confirmed 741122002 Problem Pain in left knee (M25.562) Active confirmed Pain of left knee joint (finding) (758641084174956 ) Problem Never smoked cigarettes (Z78.9) Active confirmed 743588966 Problem Non-smoker (Z78.9) Active confirmed 4164200 Problem Paresthesia (R20.2) Active confirmed 61554992 Problem Radicular pain of both lower extremities (M54.10) Active confirmed Radiculopathy (65482163) VITAL SIGNS Heart Rate 80 /min 02/21/2025 Blood pressure diastolic 88 mm Hg 02/21/2025 Height 66 in 02/21/2025 Blood pressure systolic 145 mm Hg 02/21/2025 Weight 190 lbs 02/21/2025 BMI 30.66 kg/m2 02/21/2025 Encounters Encounter Location Date Provider Diagnosis [facility] [address] [facility] [facility], [address] [place], [place] [id number] 05/17/2024 Amee Burden Connective tissue disease M35.9 ; Primary generalized (osteo)arthritis M15.0 ; Other intermediate (current) drug therapy Z79.899 ; Toe pain, left M79.675 ; Hypercalcemia E83.52 ; Paresthesia R20.2 ; Radicular pain of both lower extremities M54.10 and Elevated LFTs R79.89 [facility], [address] [place], [place] [id number] 08/24/2024 Yari Cheng Connective tissue disease M35.9 ; Primary generalized (osteo)arthritis M15.0 ; 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 Z79.899 ; Toe pain, left M79.675 ; Hypercalcemia E83.52 ; Paresthesia R20.2 ; Radicular pain of both lower extremities M54.10 and Elevated LFTs R79.89 [facility] [address] [facility], [address] [id number] 11/24/2024 Amee Burden [facility] [address] [place] [address], [address] [id number] 11/15/2024 Amee Burden Connective tissue disease M35.9 ; Primary generalized (osteo)arthritis M15.0 ; 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 Z79.899 ; Toe pain, left M79.675 ; Hypercalcemia E83.52 ; Paresthesia R20.2 ; Radicular pain of both lower extremities M54.10 and Elevated LFTs R79.89 [facility] [address] [place] [address], [address] [id number] 02/15/2025 Yari Cheng [facility] [address] [place] [address], [address] [id number] 02/21/2025 Yari Cheng Connective tissue disease M35.9 ; Primary generalized (osteo)arthritis M15.0 ; 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 Z79.899 ; Toe pain, left M79.675 ; Hypercalcemia E83.52 ; Paresthesia R20.2 ; Radicular pain of both lower extremities M54.10 and Elevated LFTs R79.89 [facility] [address] [place] [address], [address] [id number] 08/03/2024 Yari Cheng Connective tissue disease M35.9 [facility] [address] [place] [address], [address] [id number] 11/22/2024 Yari Cheng [facility] [address] [place] [address], [address] [id number] 02/21/2025 Yari Cheng Primary generalized (osteo)arthritis M15.0 [facility] [address] [place] [address], [address] [id number] 02/23/2025 Yari Cheng [facility] [address] [place] [address], [address] [id number] 04/13/2025 Yari Cheng [facility] [address] [facility], [address] [place], [place] [id number] 10/13/2024 Yari Cheng [facility] [address] [facility], [address] [place], [place] [id number] 11/15/2024 Yari Cheng ASSESSMENTS Encounter Date Diagnosis Assessment Notes Treatment Notes Treatment Clinical Notes Section Notes 05/17/2024 Connective tissue disease (ICD-10 - M35.9) [...] TSH. Ask about a sleep study 02/21/2025 Connective tissue disease (ICD-10 - M35.9) [...] 08/03/2024 Connective tissue disease (ICD-10 - M35.9) 02/21/2025 Primary generalized (osteo)arthritis (ICD-10 - M15.0) 05/17/2024 Other intermediate (current) drug therapy (ICD-10 - Z79.899) Continue AZA. GI following colitis and LFTs. Cont eye exams. Avoid sun exposure. Had a hysterectomy but no sx's of menapause yet- she wants to wait on DXA. Raynauds- keep warm. Seeing Neuro for paresthesia issues. Continue Duloxetine. Labwork drawn to evaluate disease process and to monitor any adverse effects of medications. 08/24/2024 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 (ICD-10 - Z79.899) Continue [...] Ask about a sleep study 02/21/2025 Other intermediate (current) drug therapy (ICD-10 - Z79.899) CTD- Continue AZA. GI following colitis and LFTs. Off HCQ. Avoid sun exposure. Had a hysterectomy but no sx's of menopause yet- she wants to wait on DXA. Raynauds- keep warm. Seeing Neuro for paresthesia issues. Continue Duloxetine. Increase dose a bit. Check labs. PCP follows TSH. Ask about a sleep study 05/17/2024 Toe pain, left (ICD-10 - M79.675) [...] Ask about a sleep study 11/15/2024 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 (ICD-10 - Z79.899) Continue [...] TSH. Ask about a sleep study 05/17/2024 Hypercalcemia (ICD-10 - E83.52) Continue AZA. [...] TSH. Ask about a sleep study 05/17/2024 Paresthesia (ICD-10 - R20.2) Continue AZA. [...] (SGOT) 04/17/2015 AST (SGOT) 10/01/2019 Creatinine, Serum 04/26/2020 Creatinine, Serum 01/24/2020 Creatinine, Serum 04/17/2015 Creatinine, Serum 10/01/2019 ALT (SGPT) 04/17/2015 ALT (SGPT) 10/01/2019 ALT (SGPT) 04/26/2020 ALT (SGPT) 01/24/2020 Complement C4, Serum 10/01/2019 Complement C4, Serum 06/28/2021 Complement C4, Serum 04/26/2020 CBC With Differential/Platelet 0 CBC With Differential/Platelet 5 CBC With Differential/Platelet 0 CBC With Differential/Platelet 0 Sed Rate - Westergren 04/26/2020 Sed Rate - Westergren 10/01/2019 Sed Rate - Westergren 06/28/2021 Sed Rate - Westergren 05/17/2024 Complement C3, Serum 06/28/2021 Complement C3, Serum [...] Lab slip given 05/17/2024 -Xray slip given 10/23/2016 -Xray slip given 11/12/2023 -Xray slip given 04/26/2020 -Xray slip given 08/23/2022 -Xray slip given 10/12/2021 X ray : Knee, right 2 views- outside ord er 10/23/2016 X ray : Knee, right 2 views- outside ord er 11/12/2023 X ray : Knee, left 2 views- outside orde r 10/23/2016 X ray : Knee, left 2 views- outside orde r 11/12/2023 NCS : Lower Extremities, Bilateral 08/23 DS DNA ANTIBODY, CRITHIDIA, IFA W/REFL Q UEST 03/05/2021 Next Appt Details Provider Name:Amee Burden, 05/23/2025 08:10:00 AM, [address] [facility], [address], [place], [place], [id number], Insurance Providers Payer Name Payer Address Payer Phone Subscriber Number Group Number Insured Name Patient Relationship to Insured Coverage Start Date Coverage End Date [facility] [address] [place] [address] [id number] Alia Angel Self - patient is the insured 0 MEDICAL (GENERAL) HISTORY Medical History History ICD Code Bruises easily Migraine head aches Dizziness Swelling of ankles/feet Varicose veins Constipation Nausea Hot flashes Anxiety Depression HBV Hyperthyroidism Surgical History Surgery Date(Month/Year) Colonoscopy 1016 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
--- OUTSIDE RECORDS SUMMARY | 2025-05-13 08:39 | XMS_ITS | Clinical Summary ---
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 Gender Identity Not on file Sexual Orientation Not on file Plan of Treatment Health Maintenance Due Date Last Done Comments DTAP/TDAP/TD VACCINES (1 - Tdap) 1984 HPV/Cotest (21-29) 1986 CERVICAL CANCER SCREENING 1995 HPV/Cotest (30-65) 1995 PAP SMEAR 1995 BREAST CANCER SCREENING 2005 COLORECTAL SCREENING 2010 Colorectal Cancer Screening 2010 FIT-DNA Q 3 years 2010 FIT/FOBT Q 1 year 2010 Flex Sig/CT Colonography Q 5 years 2010 ZOSTER VACCINE (1 of 2) 2015 INFLUENZA VACCINE (#1) 2025 RSV VACCINE (60+ or ) (1 - 1-dose 75+ series) 2040 HEPATITIS B VACCINES Aged Out No long er eligible based on patient's age to complete this topic Insurance BCBS BLUE ACCESS CHOICE Care Teams Supervisor Shipping Relationship Specialty Start Date End Date Manuela Gray MD [address] [place] [address] PCP - General Family Practice 09/03/22
--- OUTSIDE RECORDS SUMMARY | 2025-05-13 08:39 | XMS_ITS | Encounter Summary ---
Author Organization [facility] Address 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
--- OUTSIDE RECORDS SUMMARY | 2025-05-13 08:39 | XMS_ITS | Encounter Summary ---
Author Organization [facility] Address 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
--- OUTSIDE RECORDS SUMMARY | 2025-05-13 08:39 | XMS_ITS | Encounter Summary ---
Author Organization [facility] Address 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
[2025-05-13 08:45] VITALS: BP 123/72; PULSE 88; RESP 18; TEMP 37; O2SAT 100
--- NOTE | 2025-05-13 09:08 | ED.URI ---
HPI - URI/Sore Throat General Chief Complaint: Upper Respiratory Infection Stated Complaint: URI symptoms Source: patient Mode of arrival: ambulatory Limitations: no limitations History of Present Illness HPI Narrative: This is a 60-year-old female patient who presents urgent care center with complaints of upper respiratory symptoms for the last 3-5 days. Patient reports increased sinus drainage, cough, dry throat, and fatigue. She denies any fever or chills. She states that this has been going through her household. Her son was seen in given an antibiotic last week however he remains ill. She has been taking Tylenol and DayQuil and NyQuil. Neck was helping her sleep DayQuil as helping in the mornings and Tylenol for body aches. She denies any other distress. She is refusing to have any type of nasal swab or testing done. MD elicited complaint: cough, sore throat, rhinorrhea and nasal congestion Onset (ago): day(s) (3-5) Consistency: constant Severity: mild Description of mucous: clear Able to tolerate fluids by mouth: Yes Exacerbating factors: nothing Relieving factors: nothing Context: sick contacts Associated symptoms: voice changes, rhinorrhea, nasal congestion, sore throat and cough Treatments prior to arrival: acetaminophen and cold medicine Related Data Home Medications ?Medication ?Instructions ?Recorded ?Confirmed ?Last Taken ?Type azathioprine 50 mg tablet 50 mg PO DAILY 01/20/24 02/07/25 Unknown History pregabalin 100 mg capsule (Lyrica) 150 mg PO TID 05/07/24 02/07/25 Unknown History celecoxib 100 mg capsule 100 mg PO BID 02/07/25 02/07/25 Unknown History cholecalciferol (vitamin D3) 50 50 mcg PO DAILY 02/07/25 02/07/25 Unknown History mcg (2,000 unit) capsule cranberry extract 500 mg capsule 500 mg PO BID 02/07/25 02/07/25 Unknown History magnesium glycinate 100 mg (as 100 mg PO DAILY 02/07/25 02/07/25 Unknown History glycinate) tablet vitamin E 180 mg/2 mL oral drops mg PO 02/07/25 02/07/25 Unknown History Allergies Allergy/AdvReac Type Severity Reaction Status Date / Time No Known Allergies Allergy Verified 05/13/25 08:39 Review of Systems Review of Systems: All systems reviewed & are unremarkable except as noted in HPI and below PMFSH Past Medical History Medical History Neuropathy (~10/2022) Fractured fibula DJD (degenerative joint disease) Dyslipidemia Migraines Bilateral breast cysts Ovarian cyst (~2014) Pyelonephritis (~2003) Hyperlipidemia SLE (systemic lupus erythematosus) Surgical History Surgical History History of decompression of ulnar nerve (~2010) History of breast biopsy (06/12/07) left breast cyst excision--benign right breast bx--benign History of repair of dehiscence of vaginal cuff (04/26/04) postcoital bleeding History of exploratory laparotomy (11/17/03) pelvic abscess History of gynecologic surgery (~2000) uterine balloon therapy History of tubal ligation (~1997) History of colonoscopy (06/23/15) History of cholecystectomy (~2012) History of hysterectomy (11/10/03) uterine prolapse, dysmenorrhea Family History Family History Mother Family history of thyroid disease Family history of arthritis Osteopenia Father Family history of cardiovascular disease Hypertension Parkinsons disease, secondary Other Breast cancer maternal aunt Son Multiple sclerosis Sibling DVT of lower extremity, bilateral Carcinoma of colon Sibling Carcinoma of colon Hypertension Social History Social History (Updated 02/07/25 @ 15:06 by GALINA Avalos) Smoking status: Never smoker Second hand tobacco smoke exposure: No Alcohol intake: former Alcohol use details: On occasion. 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 Gender identity (if verbalized by the patient): Female Sexual Orientation (if Verbalized by the Patient): Straight or Heterosexual Exam Const: General: healthy appearing Nutritional Appearance: well nourished Orientation/consciousness: patient oriented x3 Limitations: no limitations HENMT: Head: normal to inspection Ears: external ears normal Face/Nose/Sinus: Normal external nose present, Normal nares present and Nasal discharge present clear bilateral Face and sinus: normal facial exam Mouth: Yes Normal oral and palatal mucosa present Teeth and gingiva: dentition normal Throat: posterior oropharynx normal Eyes: Conjunctivae: conjunctivae normal Neck: Neck: normal visual inspection, no lymphadenopathy and no meningeal signs Chest: Chest palpation & inspection: normal inspection of the chest Resp: Effort & Inspection: normal respiratory effort Auscultation: clear to auscultation bilaterally Cardio: Rate: regular rate Rhythm: regular rhythm GI: GI Palp: Yes Soft to palpation Auscultation: normal bowel sounds Skin: General skin exam: normal color Rashes: no rashes Neuro: General: patient oriented x3 Cranial nerves: Yes Nystagmus not present Speech: normal speech Gait exam (Neuro): Normal gait present Extrem: General: normal to inspection Psych: Mental Status: mental status grossly normal Affect: normal affect Attitude: cooperative Course Course Emergency Course: This is a 60-year-old female patient who presents urgent care center with complaints of upper respiratory symptoms for the last 3-5 days. Patient reports increased sinus drainage, cough, dry throat, and fatigue. She denies any fever or chills. She states that this has been going through her household. Her son was seen in given an antibiotic last week however he remains ill. She has been taking Tylenol and DayQuil and NyQuil. Neck was helping her sleep DayQuil as helping in the mornings and Tylenol for body aches. She denies any other distress. She is refusing to have any type of nasal swab or testing done. Discussed symptomatic management after exam findings are needed. Discuss antibiotics with viral symptoms. Will avoid any antibiotics at this time. Increase her fluids, rest. Continue with cough and cold medications including Mucinex to thin the mucus. Continue with cough drops for throat relief. Will give a short course of prednisone. Continue Tylenol and ibuprofen as needed for discomfort. Follow up with her primary care provider in the next 3-4 days for further evaluation on exam return to the urgent care emergency department any worrisome sign or symptom. Answered all questions to their satisfaction she is agreeable to plan. Patient denies any further distress or concerns to be addressed prior to discharge Level of Care: Express Care Visit Vital Signs Vital signs: Vital Signs Temperature 98.6 F 05/13/25 08:45 Pulse Rate 88 05/13/25 08:45 Respiratory Rate 18 05/13/25 08:45 Blood Pressure 123/72 05/13/25 08:45 Pulse Oximetry 100 05/13/25 08:45 Oxygen Delivery Room Air 05/13/25 08:45 Temperature 98.6 F 05/13/25 08:45 Pulse Rate 88 05/13/25 08:45 Respiratory Rate 18 05/13/25 08:45 Blood Pressure 123/72 05/13/25 08:45 Pulse Oximetry 100 05/13/25 08:45 Oxygen Delivery Room Air 05/13/25 08:45 MDM - URI/Sore Throat MDM Narrative Medical decision making narrative: Increase her fluids, rest. Continue with cough and cold medications including Mucinex to thin the mucus. Continue with cough drops for throat relief. Will give a short course of prednisone. Continue Tylenol and ibuprofen as needed for discomfort. Follow up with her primary care provider in the next 3-4 days for further evaluation on exam return to the urgent care emergency department any worrisome sign or symptom. Differential Diagnosis Differential diagnosis: Likely viral infection Medical Records Attestation: I reviewed the patient's medical records. Discharge Plan Discharge Clinical Impression: Viral infection Patient Disposition: Home Condition: Stable Instructions: Upper Respiratory Infection (ED), Viral Syndrome (ED) Additional Instructions: Increase her fluids, rest. Continue with cough and cold medications including Mucinex to thin the mucus. Continue with cough drops for throat relief. Will give a short course of prednisone. Continue Tylenol and ibuprofen as needed for discomfort. Follow up with her primary care provider in the next 3-4 days for further evaluation on exam return to the urgent care emergency department any worrisome sign or symptom. Patient Language: German Prescriptions: New prednisone 10 mg tablet 10 mg PO BID Qty: 10 0RF No Action azathioprine 50 mg tablet 50 mg PO DAILY amitriptyline 25 mg tablet 25 mg PO QHS Qty: 1 0RF duloxetine 30 mg capsule, delayed rel sprinkle 30 mg PO DAILY Qty: 1 0RF pregabalin [Lyrica] 100 mg capsule 150 mg PO TID celecoxib 100 mg capsule 100 mg PO BID cranberry extract 500 mg capsule 500 mg PO BID Rx Instructions: administer with meals cholecalciferol (vitamin D3) 50 mcg (2,000 unit) capsule 50 mcg PO DAILY magnesium glycinate 100 mg tablet 100 mg PO DAILY vitamin E 180 mg/2 mL drops PO sumatriptan succinate 100 mg tablet 100 mg PO ONCE Qty: 14 3RF Rx Instructions: TAKE NEEDED PER DIRECTIONS. levothyroxine [Levoxyl] 25 mcg tablet 25 mcg PO DAILY Qty: 90 1RF atorvastatin 20 mg tablet 20 mg PO DAILY Qty: 30 3RF topiramate 25 mg tablet See Rx Instructions .ROUTE .COMPLEX Qty: 60 4RF Dose Instruction: TAKE 1 TABLET BY MOUTH TWICE DAILY Rx Instructions: TAKE 1 TABLET BY MOUTH TWICE DAILY Follow-up/Referrals: Isaac,MD Manuela [Primary Care Provider, Family Practice] Time of Disposition: 09:14
== END 2025-05-13 09:26 | disposition home or self-care (01) ==
PROVIDERS: Emergency Provider Nurse Practitioner Family; PCP Family Medicine
DX: B34.9 Viral infection, unspecified (principal); E78.5 Hyperlipidemia, unspecified; M32.9 Systemic lupus erythematosus, unspecified
CPT/HCPCS: 99213; G0463

== ENCOUNTER 2025-05-16 08:25 | Outpatient (CLI) | payer BC, SELFPAY ==
--- OUTSIDE RECORDS SUMMARY | 2025-02-23 01:46 | XMS_ITS ---
Author Organization [facility] Address [address] [place], [place] [phone] Care Team Providers Care Plan Consultant Name Role Phone NIKO NUNEZ MD Primary Care Provider Yari Pizarro Unavailable [phone] Encounters Encounter Location Date Provider Diagnosis [facility] [address] [place], [place] [phone] 02/23/2025 Yari Cheng PLAN OF TREATMENT No Information
--- NOTE | ~2025-05-16 | US_ITS ---
ULTRASOUND ABDOMEN LIMITED (RIGHT UPPER QUADRANT) Clinical History: R74.8 - Abnormal levels of other serum enzymes Comparison: CT abdomen pelvis 01/16/2025 CT abdomen pelvis 05/11/2024 Right upper quadrant ultrasound 01/17/2023 Technique: Right upper quadrant sonography Findings: Liver: Enlarged. Echogenic. No intrahepatic biliary ductal dilatation. Normal hepatopedal flow main portal vein. 16 mm hypoechoic focus left lobe. Common Duct: Normal caliber. 2 mm. Gallbladder: Removed. Pancreas: Obscured by bowel gas. IMPRESSION: 1. Hepatomegaly, with steatosis and/or hepatocellular disease 2. 16 mm hypoechoic focus left lobe of liver. Probably hemangioma with atypical ultrasound appearance. Recommend six-month follow-up ultrasound and/or MRI. Reviewed, dictated and finalized at location R. UM FORM OPERATOR IMPRESSION: 1. Hepatomegaly, with steatosis and/or hepatocellular disease 2. 16 mm hypoechoic focus left lobe of liver. Probably hemangioma with atypica l ultrasound appearance. Recommend six-month follow-up ultrasound and/or MRI.
--- OUTSIDE RECORDS SUMMARY | 2025-05-16 08:39 | XMS_ITS | Clinical Summary ---
Author Organization [facility] Address [address] [place] [address] Care Team Providers Care Manager Customer Name Role Phone Manuela Gray MD Primary Care Provider [phone] Allergies Active Allergy Reactions Criticality Noted Date [...] Department Care Team Description 05/02/2025 7:06 AM BUSINESS LAWYER - 05/02/2025 11:59 PM BUSINESS LAWYER Hospital Encounter [facility] ([facility]) [address] [place] [id number] Breast lump in female Discharge Disposition: Discharge to home or self care 05/02/2025 7:06 AM BUSINESS LAWYER - 05/02/2025 11:59 PM BUSINESS LAWYER Hospital Encounter [facility] ([facility]) [address] [place] [address] Breast lump in female Discharge Disposition: Discharge to home or self care 03/10/2025 3:00 PM CDT Office Visit [facility] [address] [address] Noman Spencer II, MD Small fiber neuropathy (Primary Dx) from Last 3 Months Surgical History Surgery Date Site/Laterality Comments [place] CHOLECYSTECTOMY Cholecystectomy - (Added by TW Conv) WRIST SURGERY Wrist Surgery - (Added by TW Conv) [place] TOTAL ABDOMINAL HYSTERECT W/WO RMVL TUBE OVARY [...] file Legal Sex Female 9:07 PM BUSINESS LAWYER Gender Identity Not on file Sexual Orientation [...] C (96.8 F) 08/17/2024 2:08 PM BUSINESS LAWYER Respiratory Rate - - Oxygen Saturation 96% 03/10/2025 2:44 PM CDT Inhaled Oxygen Concentration - - Weight 81.6 kg (180 lb) 05/02/2025 8:13 AM BUSINESS LAWYER Height 167.6 cm (5' 6) 05/02/2025 8:13 AM BUSINESS LAWYER Body Mass Index 29.05 05/02/2025 8:13 AM BUSINESS LAWYER Plan of Treatment Health Maintenance Due Date [...] Read Routine (OP Routine) 05/02/2025 8:23 AM BUSINESS LAWYER Breast lump in female US BREAST LEFT LIMITED Schedule Routine, Read Routine (OP Routine) 05/02/2025 8:23 AM BUSINESS LAWYER Breast lump in female from Last 3 Months Results * Diagnostic Mammogram Bilateral W Cong (05/02/2025 8:23 AM BUSINESS LAWYER) Anatomical Region Laterality Modality Breast Bilateral Mammography 05/02/2025 8:37 AM BUSINESS LAWYER Impressions 05/02/2025 9:35 AM BUSINESS LAWYER 1. No mammographic or sonographic abnormality identified [...] Leti Kennedy M.D. Narrative 05/02/2025 9:35 AM BUSINESS LAWYER EXAMINATION: BILATERAL DIGITAL DIAGNOSTIC MAMMOGRAM INCLUDING CAD [...] US Breast Left Limited (05/02/2025 8:23 AM BUSINESS LAWYER) Anatomical Region Laterality Modality Breast Left Ultrasound 05/02/2025 8:37 AM BUSINESS LAWYER Impressions 05/02/2025 9:35 AM BUSINESS LAWYER 1. No mammographic or sonographic abnormality identified [...] Leti Kennedy M.D. Narrative 05/02/2025 9:35 AM BUSINESS LAWYER EXAMINATION: BILATERAL DIGITAL DIAGNOSTIC MAMMOGRAM INCLUDING CAD [...] Final Result from Last 3 Months Insurance [facility] ACCESS CHOICE ANTHEM ACCESS CHOICE ANTHMOAEC ACCESS CHOICE Care Teams Manager Customer Relationship Specialty Start Date End Date Manuela Gray MD PCP - General Family Medicine 02/21/23
--- OUTSIDE RECORDS SUMMARY | 2025-05-16 08:39 | XMS_ITS | Clinical Summary ---
Author Organization [facility] Address [address] [place] [address] Care Team Providers Care Behavioral Interventionist Name Role Phone Neftaly Oden MD Primary Care Provider [phone] Source Comments [facility],non-owned Affiliates and Associated Physician Practices is amultiple site organization consisting of ambulatory clinics and hospital sitesin [place], [place], [place] and [place]. This disclosure is being madepursuant to the Care Everywhere program and may not contain all information available regarding this patient. Last updated 18.[facility] Allergies No known active allergies Medications * [...] PO Take by mouth once daily Active [place]-3 Fatty Acids (SB OMEGA-3 FISH OIL PO) [...] complete this topic Insurance WALLY Care Teams Behavioral Interventionist Relationship Specialty Start Date End Date Neftaly Oden MD [address] [place] [address] PCP - General Family Medicine 02/14/16
--- OUTSIDE RECORDS SUMMARY | 2025-05-16 08:40 | XMS_ITS | Encounter Summary ---
Author Organization [facility] Address [address] [place] [address] Care Team Providers Care Membership Sales Advisor Name Role Phone Manuela Gray MD Primary Care Provider [phone] Encounter Details Date Type Department Care Team (Latest Contact Info) Description 11/10/2001 Outpatient [facility] [employer] [facility] 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
--- OUTSIDE RECORDS SUMMARY | 2025-05-16 08:40 | XMS_ITS | Encounter Summary ---
Author Organization [facility] Address 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
--- OUTSIDE RECORDS SUMMARY | 2025-05-16 08:40 | XMS_ITS | Encounter Summary ---
Author Organization [facility] Address 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
--- OUTSIDE RECORDS SUMMARY | 2025-05-16 08:40 | XMS_ITS | Clinical Summary ---
Author Organization [facility] Address [address] [place] [address] Phone Care Team Providers Care Diet Supervisor Name Role Phone Manuela Gray MD Primary Care Provider [phone] Social History Tobacco Use Types Packs/Day Years Used Date Smoking Tobacco: Never Assessed Comments Unknown Sex and Gender Information Value Date Recorded Sex Assigned at Not on file Legal Sex Female 2:54 AM TELEVISION ACTOR Gender Identity Not on file Sexual Orientation [...] Insurance [employer] BLUE ACCESS CHOICE Care Teams Diet Supervisor Relationship Specialty Start Date End Date Manuela Gray MD [address] [place] [address] PCP - General Family Practice 09/03/22
--- OUTSIDE RECORDS SUMMARY | 2025-05-16 08:40 | XMS_ITS | Encounter Summary ---
Author Organization [facility] Address [address] [place] [address] Care Team Providers Care Fixed Route Bus Operator Name Role Phone Manuela Gray MD Primary Care Provider [phone] Encounter Details Date Type Department Care Team (Late st Contact Info) Description 12/12/2001 Outpatient [facility] [place] [facility] [employer] [facility] [address] [place] [address] [place] [address] [place] [address] [place] [address] Social History Tobacco Use Types Packs/Day Years Used Date Smoking Tobacco: Never Assessed Comments Unknown Sex and Gender Information Value Date Recorded Sex Assigned at Not on file 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
--- OUTSIDE RECORDS SUMMARY | 2025-05-16 08:40 | XMS_ITS | Encounter Summary ---
Author Organization [facility] Address [address] [place] [address] Care Team Providers Care Trust Manager Assistant Name Role Phone Manuela Gray MD Primary Care Provider [phone] Encounter Details Date Type Department Care Team (Latest Contact Info) Description 09/28/2001 Outpatient Historical [facility] Giron, [place] [address] [place] [address] [place] [address] CERVICALGIA (Primary Dx) Social History Tobacco Use Types Packs/Day Years Used Date Smoking Tobacco: Never Assessed Comments Unknown Sex and Gender Information Value Date Recorded Sex Assigned at Not on file 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
== END 2025-05-16 08:26 | disposition home or self-care (01) ==
DX: R74.8 Abnormal levels of other serum enzymes (principal)
CPT/HCPCS: 76705